=== PATIENT | female | born 1975 | race Two or more races ===

== ENCOUNTER 2024-04-22 08:38 | Outpatient (AMB) | payer MEDICAID, SELFPAY ==
[2024-04-22 09:10] VITALS: BP 122/72; PULSE 88; O2SAT 100; BMI 18.2
--- NOTE | 2024-04-22 09:10 | A.OFFVIS_ITS ---
Vital Signs 04/22/24 09:10 Height 5 ft 2 in Weight 99 lb 10.383 oz BMI 18.2 BP 122/72 Blood Pressure Location Lt brachial Position Sitting Pulse 88 Pulse Source Pulse Oximeter Pulse Oximetry (%) 100 Oxygen Delivery Method Room Air Intake Visit Reasons: RA/MR RECIEVED /CM APT Intake Note: Patient presents today for follow upon RA and lupus. She swas last seen in the [facility] on 04/02/[address] Bethea. She is complaining of arthritis in right hand,, and right foot, and burning pain in her feet. Trouble getting up and walking, getting dressed sometimes. Allergies nifedipine Allergy (Mild, Verified 04/22/24 08:26) intolerance HPI HPI RA/MR RECIEVED /CM APT: Details: SHe has pain in joints exacerbated with cold weather. She has not started leflunomide. She has been taking prednisone on 2 occasions that she had at home to help relieve joint pain. She denies any side effects from prednisone use. In the past when she was on prednisone 20 mg daily, she had headaches, which eventually subsided. Dermatology prescribed topical steroid for her rash with benefit. She has daily headaches with nausea. Nifedipine exacerbated her headaches. Review of Systems Const All systems reviewed & are unremarkable except as noted in HPI and below Physical Exam Vital Signs: Last Vital Signs Pulse 88 04/22/24 09:10 BP 122/72 04/22/24 09:10 Pulse Ox 100 04/22/24 09:10 Oxygen Delivery Method Room Air 04/22/24 09:10 BMI result Body Mass Index 18.2 Const Other: General: Comfortable CVS: RRR Respiratory: clear to auscultation bilaterally. Good respiratory effort Skin: No lesions seen MSK: Tender to palpate bilateral PIP knees. She has synovitis in multiple PIP and knees. No MCP tenderness. Rest of the joints are nontender without synovitis in upper extremities. She has bilateral MTP tenderness. Good range of motion of all her joints. Assessment & Plan Assessment & Plan (1) Systemic lupus erythematosus: Comment: History of Rhupus (RA/SLE) with rheumatoid factor 39, DICK 1: 1280, Lara and APPLICATIONS CONSULTANT antibody presenting with inflammatory arthritis, rashes and Raynaud's syndrome. She was started on hydroxychloroquine from 11/19/2021 to 02/19/2022, which was discontinued due to development of rash. Methotrexate was started 05/21/2022 to 05/21/2023 but caused headaches and discomfort. Benlysta increased agitation, anxiety and caused suicidal ideation. Uncontrolled inflammatory arthritis. She is currently not on a DMARD. She was prescribed leflunomide by Dr. Bethea in April but did not start it. She is willing to start it next Friday. Code(s): M32.9 - Systemic lupus erythematosus, unspecified Category: Medical Qualifiers: Systemic lupus erythematosus organ involvement: other Systemic lupus erythematosus type: unspecified Qualified Code(s): M32.19 - Other organ or system involvement in systemic lupus erythematosus Plan: Labs for drug monitoring ordered today. She will start leflunomide 10 mg daily on Friday She will have labs in a month for drug monitoring on high-risk medication Return to clinic in 3 months (2) Rheumatoid arthritis: Comment: See above Code(s): M06.9 - Rheumatoid arthritis, unspecified Category: Medical Plan: See above (3) Other petroleum terminal plant operator (current) drug therapy: Code(s): Z79.899 - Other petroleum terminal plant operator (current) drug therapy Category: Medical Plan: See above (4) Raynauds disease: Comment: Uncontrolled. Amlodipine and nifedipine caused headaches. She has had many different side effects on different drugs. I will start treatment for inflammatory arthritis this visit. If Raynaud's syndrome becomes more active, I will need to consider sildenafil. Code(s): I73.00 - Raynaud's syndrome without gangrene Category: Medical Plan: Monitor clinically Discussed conservative management with wearing gloves in the cold We will consider sildenafil next visit or sooner if Raynaud's becomes more active Return to clinic in 3 months or sooner if needed Orders: Orders Alanine Aminotransferase 1 Month M06.9 - Rheumatoid arthritis, unspecified, M32.9 - Systemic lupus erythematosus, unspecified, Z79.899 - Other fdc (current) drug therapy C Reactive Protein 1 Month Z79.899 - Other fdc (current) drug therapy Complete Blood Count Auto Diff 1 Month Z79.899 - Other fdc (current) drug therapy T Spot TB Today Z79.899 - Other petroleum terminal plant operator (current) drug therapy Complement C3 1 Month M32.9 - Systemic lupus erythematosus, unspecified Aspartate Amino Transferase 1 Month Z79.899 - Other petroleum terminal plant operator (current) drug therapy Creatinine 1 Month Z79.899 - Other fdc (current) drug therapy Erythrocyte Sedimentation Rate 1 Month Z79.899 - Other petroleum terminal plant operator (current) drug therapy Hepatitis B,C Profile Today Z79.899 - Other petroleum terminal plant operator (current) drug therapy Complement C4 1 Month M32.9 - Systemic lupus erythematosus, unspecified Anti DNA DS Antibody 1 Month M32.9 - Systemic lupus erythematosus, unspecified Protein Creatinine Ratio, Ur 1 Month M32.9 - Systemic lupus erythematosus, unspecified UA w Microscopic 1 Month M32.9 - Systemic lupus erythematosus, unspecified Coding Level of Care Code Est Pt Level 4 (93296) Complex EM visit Add On G2211 Diagnoses Systemic lupus erythematosus with other organ involvement, unspecified SLE type M32.19 Systemic lupus erythematosus organ involvement: other Systemic lupus erythematosus type: unspecified Rheumatoid arthritis M06.9 Other petroleum terminal plant operator (current) drug therapy Z79.899 Raynauds disease I73.00
== END 2024-04-22 09:54 | disposition home or self-care (01) ==
PROVIDERS: PCP Physician Assistant; Visit Provider Internal Medicine Rheumatology
DX: M32.19 Other organ or system involvement in systemic lupus erythematosus (principal); M06.9 Rheumatoid arthritis, unspecified; Z79.899 Other long term (current) drug therapy; I73.00 Raynaud's syndrome without gangrene
CPT/HCPCS: 99214

== ENCOUNTER → 2024-04-22 08:38 | Outpatient (BNVA) | payer MEDICAID, SELFPAY | PROVIDERS: PCP Physician Assistant; Visit Provider Internal Medicine Rheumatology | DX: M32.19 Other organ or system involvement in systemic lupus erythematosus (principal); M06.9 Rheumatoid arthritis, unspecified; I73.00 Raynaud's syndrome without gangrene; Z79.899 Other long term (current) drug therapy | CPT/HCPCS: 99212 ==

== ENCOUNTER 2024-04-26 08:20 | Outpatient (REF) | payer MEDICAID, SELFPAY | END 2024-04-26 08:21 | disposition home or self-care (01) | LOC: HO.LAB 08:20 | PROVIDERS: PCP Physician Assistant; Visit Provider Internal Medicine Rheumatology | DX: Z13.89 Encounter for screening for other disorder (principal) | CPT/HCPCS: 36415; 86481; 86704; 86706; 86803; 87340 ==

== ENCOUNTER 2024-04-26 13:38 | Outpatient (REF) | payer MEDICAID, SELFPAY ==
[2024-04-26 10:28] LABS: HBS Num1 > 1000.00 mIU/mL (0-7.99); HBc Num1 0.12 S/CO (0.00-0.79); Hepatitis B Core Antibody Nonreactive (Nonreactive); Hepatitis B Surface Antigen Negative (Negative); ~Hepatitis B Surface Antibody REACTIVE (Nonreactive); ~Hepatitis C Antibody Nonreactive (Nonreactive)
[2024-04-30 13:20] LABS: TS Negative Control PASSED; TS Panel A 0; TS Panel B 0
[2024-04-30 13:23] LABS: TSpotTB NEGATIVE
[2024-04-30 13:24] LABS: TS Positive Control PASSED
== END 2024-04-26 13:39 | disposition home or self-care (01) ==
LOC: HO.LNP 13:38
PROVIDERS: Visit Provider Internal Medicine Rheumatology
DX: M32.9 Systemic lupus erythematosus, unspecified (principal); M06.9 Rheumatoid arthritis, unspecified; Z79.899 Other long term (current) drug therapy
CPT/HCPCS: 36415; 86481; 86704; 86706; 86803; 87340

== ENCOUNTER 2024-07-27 10:11 | Outpatient (AMB) | payer MEDICAID, SELFPAY ==
--- NOTE | 2024-07-27 10:18 | A.OFFVIS_ITS ---
Vital Signs 07/27/24 10:19 Height 5 ft 2 in Weight 98 lb 1.691 oz BMI 17.9 BP 100/70 Blood Pressure Location Lt brachial Position Sitting Pulse 58 Pulse Source Pulse Oximeter Pulse Oximetry (%) 98 Oxygen Delivery Method Room Air Intake Visit Reasons: Follow Up 3mo Intake Note: Patient presents today for follow upon RA and lupus. Pt states that she has torn ligaments in her right leg for the past week pt states that she almost fell in the bathtub and caught herself. Mobile Home Servicer Required: No Accompanied by: Self / Same As Patient Allergies nifedipine Allergy (Mild, Verified 07/27/24 10:18) intolerance HPI HPI Follow Up 3mo: Details: A week ago she almost fell in the bathroom and hung on the curtain. She has a sensation of tendon pull from right hip radiation to knee. Constant. Hard to sle ep. Bending worsens the pain. Tylenol and voltaren gel. On leflunomide 10mg qd. She has been having hair loss. She feels depressed with the hair loss. She has pain in her right shoulder extending to her upper arm when she lays down on it to rest. She requires assistance to help her get up due to uncontrolled pain, which eventually decreases in intensity. R 3-4th finger is active with raynaud's in the cold. Review of Systems Const All systems reviewed & are unremarkable except as noted in HPI and below Physical Exam Vital Signs: Last Vital Signs Pulse 58 07/27/24 10:19 BP 100/70 07/27/24 10:19 Pulse Ox 98 07/27/24 10:19 Oxygen Delivery Method Room Air 07/27/24 10:19 BMI result Body Mass Index 17.9 Const Other: General: Comfortable CVS: RRR Respiratory: clear to auscultation bilaterally. Good respiratory effort Skin: No lesions seen MSK: Tender to palpate bilateral PIPs. She has synovitis in right 2nd and 3rd PIP. No MCP tenderness. Right shoulder tenderness anteriorly. She has pain with internal rotation. Full range of motion of bilateral shoulders. She has bilateral MTP tenderness. Tender to palpate left groin region with pain with hip external rotation, flexion and extension. No trochanteric bursa tenderness was found. Assessment & Plan Assessment & Plan (1) Systemic lupus erythematosus: Comment: Inflammatory arthritis is better controlled on leflunomide but it is causing side effect of hair loss contributing to depression. We discussed next steps in management with conventional DMARDs therapy. After lab results are back, we will consider sulfasalazine. History of Rhupus (RA/SLE) with rheumatoid factor 39, DICK 1: 1280, Lara and [employer]AP[employer] FORMER antibody presenting with inflammatory arthritis, rashes and Raynaud's syndrome. She was started on hydroxychloroquine from 10/2021 to 01/2022, which was discontinued due to development of rash. Methotrexate was started 05/21/2022 to 05/21/2023 but caused headaches and discomfort. Benlysta increased agitation, anxiety and caused suicidal ideation. Leflunomide 10 mg q.d. 04/2024-07/27/2024 DC due to hair loss. Code(s): M32.9 - Systemic lupus erythematosus, unspecified Category: Medical Qualifiers: Systemic lupus erythematosus type: unspecified Systemic lupus erythematosus organ involvement: other Qualified Code(s): M32.19 - Other organ or system involvement in systemic lupus erythematosus Plan: Discontinue leflunomide Labs for disease and drug monitoring on high-risk medication ordered. I will consider prescribing sulfasalazine 500 mg twice a day. Return to clinic in 3 months (2) Hip pain, right: Comment: After slipping in the bathroom likely contributing to muscle/ligament strain. I will obtain x-ray of right hip to evaluate for osteoarthritis, which may also contribute to pain. We discussed conservative management. She is avoiding ibuprofen as it has caused GI side effect in the past. Code(s): M25.551 - Pain in right hip Category: Medical Plan: After lab results are back, I will send prescription for meloxicam 15 mg daily PT ordered (3) Shoulder pain, right: Comment: Suspect mild rotator cuff tendinopathy. We discussed conservative management. I will be checking x-ray to evaluate for joint pathology contributing to pain. Code(s): M25.511 - Pain in right shoulder Category: Medical Qualifiers: Chronicity: chronic Qualified Code(s): M25.511 - Pain in right shoul amarjit; G89.29 - Other chronic pain Plan: X-ray right shoulder ordered PT ordered for shoulder strengthening After lab results are back, I will send prescription for NSAID meloxicam 15 mg daily Return to clinic in 3 months (4) Rheumatoid arthritis: Comment: See above Code(s): M06.9 - Rheumatoid arthritis, unspecified Category: Medical Plan: See above (5) Other residential (current) drug therapy: Code(s): Z79.899 - Other ocean transportation intermediary (current) drug therapy Category: Medical Plan: See above (6) Raynauds disease: Comment: Better controlled with compliance with conservative management (gloves, warming with warm water and using hot packs). Amlodipine and nifedipine caused headaches. Code(s): I73.00 - Raynaud's syndrome without gangrene Category: Medical Plan: Continue conservative management I will consider sildenafil if Raynaud's becomes more active Return to clinic in 3 months or sooner if needed Orders: Orders XR hip RT min 2V Today M25.551 - Pain in right hip PT Evaluation and Treatment Today M25.511 - Pain in right shoulder, M25.551 - Pain in right hip, M75.81 - Other shoulder lesions, right shoulder, S76.011A - Strain of muscle, fascia and tendon of right hip, initial encounter XR shoulder RT min 2V Today M25.511 - Pain in right shoulder Coding Level of Care Code Est Pt Level 4 (02485) Complex EM visit Add On G2211 Diagnoses Systemic lupus erythematosus with other organ involvement, unspecified SLE type M32.19 Systemic lupus erythematosus type: unspecified Systemic lupus erythematosus organ involvement: other Hip pain, right M25.551 Chronic right shoulder pain M25.511; G89.29 Chronicity: chronic Rheumatoid arthritis M06.9 Other ocean transportation intermediary (current) drug therapy Z79.899 Raynauds disease I73.00
[2024-07-27 10:19] VITALS: BP 100/70; PULSE 58; O2SAT 98; BMI 17.9
--- OUTSIDE RECORDS SUMMARY | 2024-07-27 11:55 | XMS_ITS | Clinical Summary ---
Author Organization [facility] Address [address] [place] [address] Care Team Providers Care Electrician Underground Name Role Phone Jeni Ramires PA-C Primary Care Provider [phone] Source Comments PLEASE NOTE, if this patient is a minor, it may be UNLAWFUL to discuss sensitive information that is contained in these records (such as FAMILY PLANNING, MENTAL HEALTH or SUBSTANCE ABUSE) with the minor patient's parent or other person without the patient's specific authorization.[facility] Allergies Active Allergy Reactions Criticality Noted Date Comments Doxycycline Nausea and Vomiting 11/18/2022 Other reaction(s): swollen eye Medications betamethasone dipropionate (DIPROLENE) 0.05 % ointment APPLY TO ARMS TWICE A DAY NEEDED FOR FOR FLARES 06/07/19 23 Active triamcinolone (KENALOG) 0.1 % lotion APPLY TO SCALP TWICE A DAY NEEDED FOR FLARES 06/07/19 23 Active arm braceIndications :Wrist pain, acute, right Wear right wrist brace, size small at night and during day, take off when bathing and toileting. Ref [id number], lot [id number] 1 Each 07/18/19 23 Active folic acid (FOLVITE) 1 mg tablet Take 1,000 mcg by mouth once daily 09/30/19 23 Active methotrexate 2.5 mg tablet TAKE 5 TABLETS BY MOUTH ONCE A WEEK 10/21/19 23 Active hydrocortisone (ANUSOL-HC) 2.5 % topical creamIndications :Hemorrhoids, unspecified hemorrhoid type Place rectally 2 (two) times daily 30 g 1 11/19/19 23 Active witch Hayder (TUCKS) 50 %Indications:Hem orrhoids, unspecified hemorrhoid type Topical: Apply to anorectal area as needed up to 6 times daily or after each bowel movement 48 Each 1 11/19/19 23 Active MISCELLANEOUS MEDICAL SUPPLY MISCIndications: Weight loss by miscellaneous route 2 (two) times daily Ensure (vanilla & strawberry) to take twice a day. Life time need it. BMI 17.93. 60 Each 1 11/21/19 24 Active SUMAtriptan succinate (IMITREX) 50 mg tabletIndication s:Acute migraine TAKE 1-2 TABLETS A SINGLE DOSE. IF SYMPTOMS PERSIST OR RETURN, MAY REPEAT DOSE (USUALLY SAME FIRST DOSE) AFTER MORE THAN 2 HOURS. MAXIMUM DOSE: 100 MG/DOSE 200 MG PER 24 HOURS. 30 Tablet 11/28/19 24 Active melatonin 3 mg tabletIndication s:Insomnia, unspecified type TAKE 1 TABLET BY MOUTH NIGHTLY AT BEDTIME NEEDED FOR SLEEP 90 Tablet 12/29/19 24 Active acetaminophen (TYLENOL) 500 mg tabletIndication s:Pelvic pain TAKE 1 TABLET BY MOUTH EVERY 6 HOURS NEEDED FOR PAIN 90 Tablet 12/29/19 24 Active docusate sodium (COLACE) 100 mg capsuleIndicatio ns:Hemorrhoids, unspecified hemorrhoid type TAKE 1 CAPSULE BY MOUTH 2 (TWO) TIMES DAILY NEEDED FOR CONSTIPATION FOR IRON-INDUCED CONSTIPATION 180 Capsule 12/29/19 24 Active Active Problems Problem Noted Date Diagnosed Date Systemic lupus erythematosus ([facility]) 4 Overview (11/21/2023): Tie Bucker note: Positive MUSIC PROFESSIONALS antibody associated with MCTD positiver DICK and Lara anitbody associated with systemic lupus erythromatosus positive rheumatoid factor antibody associated with RA Family history of pancreatic cancer 11/21/2023 Family history of breast cancer 11/21/2023 Family hx of colon cancer 11/21/2023 Acute migraine 11/21/2023 Weight loss 11/21/2023 Screening mammogram, encounter for 11/21/2023 Iron deficiency 11/18/2022 Deviated nasal septum 11/30/2021 Hypertrophy of nasal turbinates 11/30/2021 Raynaud's disease without gangrene 10/05/2021 Overview (10/05/2021): Rheumatology started Amlodipine 2.5mg once daily Chronic polyarthritis 10/05/2021 RA (rheumatoid arthritis) ([facility]) Overview (08/29/2022): Seeing arthritis Rx center. Last seen 08/26/22. On methotrexate 12.5mg once weekly. + folic acid. F/u in 6 months, lab monitoring in 1 month Immunizations Name Administration Dates Next Due Flu, Preservative Free 05/21/2023,07/26/2021 Hep B,adult,adjuvanted (HEPLISAV) 08/06/2023, INFLUENZA, SEASONAL, INJECTABLE, PRESERVATIVE FR EE 01/29/2016,01/29/2016 Influenza, Whole 05/05/2012 PFIZER COVID VACCINE, PURPLE CAP, 12+ 06/21/2021 ,06/21/2021 PNEUMOCOCCAL CONJUGATE PCV 13 11/18/2022 TDAP 07/26/2021 Td (adult) unspecified 05/05/2012 Td (adult), 5 Lf tetanus toxoid, preservative fr ee 08/20/2013 ZOSTER VACCINE, RECOMBINANT (SHINGRIX) ,11/18/2022 Family History Medical History Relation Name Comments Cancer Daughter 3 Cancer Father Cancer Mother Diabetes Mother High Cholesterol Mother Hypertension Mother Relation Name Status Comments Daughter 3 Alive Elder sister wi th breast cancer and 2nd sister with skin cancer Father Other Prostate cancer Mother Other Pancreatic canc er Social History Tobacco Use Types Packs/Day Years Used Date Smoking Tobacco: Never Smokeless Tobacco: Never Alcohol Use Standard Drinks/Week Comments Not Currently 0 (1 standard drink = 0.6 oz pur e alcohol) Social Connections Answer Date Recorded Connectedness 0 11/18/2022 Financial Resource Strain Answer Date R ecorded Financial Resource Strain 0 2022 Stress Answer Date Recorded Stress 0 11/18/2022 Physical Activity Answer Date Recorded Physical Activity 0 07/26/2021 Food Insecurity Answer Date Recorded Food 0 11/18/2022 Transportation Needs Answer Date Record ed Transportation 0 11/18/2022 Housing Stability Answer Date Recorded Housing 0 11/18/2022 Safety and Environment Answer Date Ruddy rded Safety 0 11/18/2022 Utilities Answer Date Recorded Utilities 0 11/18/2022 Employment Answer Date Recorded Stress 0 08/20/2021 Comments No Sex and Gender Information Value Date Recorded Sex Assigned at Female 07/26/2021 9:57 AM PST Legal Sex Female 6:12 AM PST Gender Identity Female 07/26/2021 9:57 AM PST Sexual Orientation Straight 07/26/2021 9: 57 AM PST Last Filed Vital Signs Vital Sign Reading Time Taken Comments Blood Pressure 106/70 11/21/2023 10:02 AM EDT Pulse 84 08/06/2023 11:42 AM EST Temperature 37.3 ??C (99.1 ??F) 11/21/2023 10:02 AM E DT Respiratory Rate 16 08/06/2023 11:42 AM EST Oxygen Saturation 100% 08/06/2023 11:42 AM EST Inhaled Oxygen Concentration - - Weight 43.2 kg (95 lb 3.2 oz) 11/21/2023 10:02 A M EDT Height 158 cm (5' 2.21 ) 07/18/2022 1:11 PM EST Body Mass Index 17.29 07/18/2022 1:11 PM EST Plan of Treatment Health Maintenance Due Date Last Done Comments HPV Screening 1974 Pap + HPV 1974 Cervical Cancer Screening 08/03/1995 Pap Smear 08/03/1995 CT Colonography 08/03/2019 FIT/gFOBT 08/03/2019 Fecal DNA 08/03/2019 Flexible Sigmoidoscopy 08/03/2019 [id number] (3 - Pfizer ris k series) 07/19/2021 06/21/2021, 06/21/2021, 02/02/2021 Imm-Pneumococcal (2 of 2 - PPSV23) 01/13/2023 11/18/2022 Annual Preventive Care Visit 11/19/2023 11/18/2022, 07/26/2021 Relationship Safety Screening/Counseling 11/19/2023 11/18/2022, 07/26/2021 Imm-Influenza (#1) 2024 05/21/2023, 0 07/26/2021, 01/29/2016, Additional history exists Alcohol and Drug Screen 06/02/2024 08/06/19, 11/18/2022, 09/27/2021, Additional history exists Depression Monitoring 10/18/2024 07/21/2024 , 05/21/2023, 11/18/2022, Additional history exists Hypertension Screening (#1) 11/20/2024 Tobacco Screening 12/02/2024 12/03/2023, , 07/26/2021 Breast Cancer Screening (Mammogram) 12/15/2024 12/16/2023, 11/26/2022, 08/15/2021 Diabetes Screening 08/06/2026 08/07/2023, 0 08/07/2023, 08/10/2021, Additional history exists Lipid Screening 08/10/2026 08/10/2021 Imm-DTaP/Tdap/Td (2 - Td or Tdap) 07/26/2031 07/26/2021, 08/20/2013, 05/05/2012 Colonoscopy 02/25/2034 02/26/2024 Colorectal Cancer Screening 02/25/2034 HIV Screening Completed 08/10/2021 Hepatitis C Screening Completed 08/10/2021 Imm-Zoster, Recombinant Completed 05/21/2023, 11/18 Imm-Hepatitis B Completed 08/06/2023, 11/18/2022 Cervical Ablation/Cold-Knife Conization Discontinued Cervical Cryotherapy Discontinued Colposcopy Discontinued Endometrial Biopsy Discontinued Excision/Leep Discontinued HPV Genotyping Discontinued Vaginal Pap Discontinued Vulvoscopy Discontinued Procedures Procedure Name Priority Date/Time Associated Diagnosis Comments LAB SCANNED DOCUMENT 04/26/2024 3:00 AM EST LAB SCANNED DOCUMENT 04/26/2024 3:00 AM EST LAB SCANNED DOCUMENT 04/26/2024 3:00 AM EST LAB SCANNED DOCUMENT 04/26/2024 3:00 AM EST REFERRAL FOR COLONOSCOPY Routine 02/26/2024 3:00 AM EDT Weight loss Family hx of colon cancer REFERRAL FOR MAMMOGRAM Routine 12/16/2023 3:00 AM EDT Family history of breast cancer Screening mammogram, encounter for HGA1C W/EAG Routine 08/07/2023 9:29 AM EST Frequent urination HIV 1/2 AG & AB W/RFLX (4TH GEN) Routine 08/10/2021 9:22 AM EST Screening for viral disease HEPATITIS C AB W/RFLX HCV RNA, QT, RT PCR Routine 08/10/2021 9:22 AM EST Screening for viral disease LIPIDS W RFLX TO DIRECT LDL Routine 08/10/2021 9:22 AM EST Screening for cholesterol level Underweight from Last 3 Months or Most Recently Relevant to Health Maintenance Results * LAB SCANNED DOCUMENT (04/26/2024 3:00 AM EST) Only the most recent of4 resultswithin the time period is included. 04/26/2024 3:00 AM EST Jeni Ramires PA-C SCAN LAB Final Result * REFERRAL FOR COLONOSCOPY (02/26/2024 3:00 AM EDT) 02/26/2024 3:00 AM EDT Jeni Ramires PA-C REFERRAL Edited Resul t - Final * REFERRAL FOR MAMMOGRAM (12/16/2023 3:00 AM EDT) 12/16/2023 3:00 AM EDT Jeni Ramires PA-C IMG RFL MAMMO Edited Resul t - Final * HGA1C W/EAG (08/07/2023 9:29 AM EST) HEMOGLOBIN A1C 5.3 <5.7 % of total Hgb [email or web address] [facility] Comment: For the purpose of screening for the presence of diabetes: <5.7% ? Consistent with the absence of diabetes 5.7-6.4% ?Consistent with increased risk for diabetes ?(prediabetes) > or =6.5% ??Consistent with diabetes This assay result is consistent with a decreased risk of diabetes. Currently, no consensus exists regarding use of hemoglobin A1c for diagnosis of diabetes in children. According to [place] Diabetes Association (ADA) guidelines, hemoglobin A1c <7.0% represents optimal control in non- diabetic patients. Different metrics may apply to specific patient populations. Standards of Medical Care in Diabetes(ADA). ?? EAG (MG/DL) 105 mg/dL [facility] EAG (MMOL/L) 5.8 mmol/L [facility] Blood Blood / Unknown 08/07/2023 9 :29 AM EST 08/07/2023 9:30 AM EST Narrative [employer] [facility] - 08/08/2023 7:22 AM EST FASTING:NO Jeni Ramires PA-C LAB - BLOOD DRAW Final Resul t Performing Organization Address [facility]/ZIP Co de Phone Number [employer] [place] [employer] [address] [place] [address], [employer] [address] [address] * HEPATITIS C AB W/RFLX HCV RNA, QT, RT PCR (08/10/2021 9:22 AM EST) HEPATITIS C ANTIBODY NON-REACT ALEX NON-REACT ALEX [employer] [facility] SIGNAL TO CUT-OFF 0.02 <1.00 [employer] [facility] Comment: HCV antibody was non-reactive. There is no laboratory evidence of HCV infection. In most cases, no further action is required. However, if recent HCV exposure is suspected, a test for HCV RNA (test code 85121) is suggested. For additional information please refer to http://education.XRONet/faq/NRW72b7 (This link is being provided for informational/ educational purposes only.) Blood Blood / Unknown 08/10/2021 9 :22 AM EST 08/10/2021 9:22 AM EST Paula SÁNCHEZP-C LAB - BLOOD DRAW Final Resul t Performing Organization Address City/[facility]/ZIP Co de Phone Number [employer] [facility] [address] [address], [employer] [address] [address] * HIV 1/2 AG & AB W/RFLX (4TH GEN) (08/10/2021 9:22 AM EST) Pathologist [facility] HIV AG/AB, 4TH GEN NON-REAC TIVE NON-REAC TIVE [facility] Comment: HIV-1 antigen and HIV-1/HIV-2 antibodies were not detected. There is no laboratory evidence of HIV infection. PLEASE NOTE: This information has been disclosed to you from records whose confidentiality may be protected by state law. ??If your state requires such protection, then the state law prohibits you from making any further disclosure of the information without the specific written consent of the person to whom it pertains, or as otherwise permitted by law. A general authorization for the release of medical or other information is NOT sufficient for this purpose. ?? For additional information please refer to http://education.XRONet/faq/JTS466 (This link is being provided for informational/ educational purposes only.) The performance of this assay has not been clinically validated in patients less than 2 years old. Blood Blood / Unknown 08/10/2021 9 :22 AM EST 08/10/2021 9:22 AM EST Paula Ping CRYSTALIZER-C LAB - BLOOD DRAW Final Resul t [employer] [address] [address], [facility] [address] [address] * (ABNORMAL) LIPIDS W RFLX TO DIRECT LDL (08/10/2021 9:22 AM EST) Pathologist [facility] CHOLESTEROL, TOTAL 179 <200 mg/dL [facility] HDL CHOLESTEROL 43(L) > OR = 50 mg/dL [facility] TRIGLYCERIDES 211(H) <150 mg/dL [facility] Comment: If a non-fasting specimen was collected, consider repeat triglyceride testing on a fasting specimen if clinically indicated. Lina et al. J. of Clin. Lipidol. 2015;9:129-169. LDL-CHOLESTEROL 103(H) 99 mg/dL (calc) [facility] Comment: Reference range: <100 Desirable range <100 mg/dL for primary prevention; ?? <70 mg/dL for patients with CHD or diabetic patients with > or = 2 CHD risk factors. LDL-C is now calculated using the Venus calculation, which is a validated novel method providing better accuracy than the Friedewald equation in the estimation of LDL-C. Conner MAXWELL et al. SERAFIN. 2013;310(19): 9836-0473 (http://education.[employer]/faq/AYZ490) CHOL/HDLC RATIO 4.2 <5.0 (calc) [facility] NON-HDL CHOLESTEROL 136(H) <130 mg/dL (calc) [facility] Comment: For patients with diabetes plus 1 major ASCVD risk factor, treating to a non-HDL-C goal of <100 mg/dL (LDL-C of <70 mg/dL) is considered a therapeutic option. Blood Blood / Unknown 08/10/2021 9 :22 AM EST 08/10/2021 9:22 AM EST Paula Feng CRYSTALIZER-C LAB - BLOOD DRAW Final Resul t [facility] [address] [address], [facility] [address] [address] from Last 3 Months or Most Recently Relevant to Health Maintenance Insurance [employer] Care Teams Electrician Underground Relationship Specialty Start Date End Date Jeni Ramires PA-C [address] [place] [address] PCP - General Internal Medicine 04/03/23
== END 2024-07-27 11:03 | disposition home or self-care (01) ==
PROVIDERS: PCP Physician Assistant; Visit Provider Internal Medicine Rheumatology
DX: M32.19 Other organ or system involvement in systemic lupus erythematosus (principal); M25.551 Pain in right hip; M25.511 Pain in right shoulder; G89.29 Other chronic pain; M06.9 Rheumatoid arthritis, unspecified; Z79.899 Other long term (current) drug therapy; I73.00 Raynaud's syndrome without gangrene
CPT/HCPCS: 99214

== ENCOUNTER → 2024-07-27 10:11 | Outpatient (BNVA) | payer MEDICAID, SELFPAY | PROVIDERS: PCP Physician Assistant; Visit Provider Internal Medicine Rheumatology | DX: M32.19 Other organ or system involvement in systemic lupus erythematosus (principal); M25.551 Pain in right hip; G89.29 Other chronic pain; M06.9 Rheumatoid arthritis, unspecified; I73.00 Raynaud's syndrome without gangrene; M75.81 Other shoulder lesions, right shoulder; S76.011A Strain of muscle, fascia and tendon of right hip, initial encounter; X58.XXXA Exposure to other specified factors, initial encounter; Y93.9 Activity, unspecified; Y92.9 Unspecified place or not applicable; Y99.9 Unspecified external cause status; Z79.899 Other long term (current) drug therapy | CPT/HCPCS: 99212 ==

== ENCOUNTER 2024-07-30 06:50 | Outpatient (REF) | payer MEDICAID, SELFPAY ==
--- NOTE | ~2024-07-30 | XR_ITS ---
CLINICAL HISTORY: M25.511 - Pain in right shoulder 4 view right shoulder Comparison: None Findings: Bones intact. No dislocations. Mild degenerative changes of the acromioclavicular and glenohumeral joints. No erosions. No radiopaque foreign body. IMPRESSION: 1. No acute findings. 2. Mild degenerative changes. This document has been electronically signed by: Mariusz Freitas MD on 07/30/2024 11:27:12
--- NOTE | ~2024-07-30 | XR_ITS ---
CLINICAL HISTORY: M25.551 - Pain in right hip 2 view, pelvis and right hip Comparison: None Findings: The bones are intact. Mild degenerative change of the femoral-acetabular joint The soft tissues are unremarkable. IMPRESSION: No acute findings. Mild degenerative changes of the right hip joint This document has been electronically signed by: Mariusz Freitas MD on 07/30/2024 11:26:40
--- OUTSIDE RECORDS SUMMARY | 2024-07-30 06:54 | XMS_ITS | Clinical Summary ---
Author Organization [facility] Address [address] [place] [address] Care Team Providers Care Information Systems Consultant Name Role Phone Jeni Ramires PA-C Primary Care Provider Source Comments PLEASE NOTE, if this patient [...] take off when bathing and toileting. Ref [id number], lot [id number] 1 Each 07/18/19 23 Active folic acid [...] Noted Date Diagnosed Date Systemic lupus erythematosus ([facility]) 4 Overview (11/21/2023): Security System Analyst note: Positive FIELD EXAMINER antibody associated with MCTD positiver DICK and [...] daily Chronic polyarthritis 10/05/2021 RA (rheumatoid arthritis) ([facility]) Overview (08/29/2022): Seeing arthritis Rx center. Last [...] 08/03/2019 Fecal DNA 08/03/2019 Flexible Sigmoidoscopy 08/03/2019 [id number] (3 - Pfizer ris k series) 07/19/2021 [...] Procedure Name Priority Date/Time Associated Diagnosis Comments REFERRAL FOR COLONOSCOPY Routine 02/26/2024 3:00 AM [...] Recently Relevant to Health Maintenance Results * REFERRAL FOR COLONOSCOPY (02/26/2024 3:00 AM EDT) 02/26/2024 3:00 AM EDT Jeni Ramires PA-C REFERRAL Edited Resul t - Final * REFERRAL FOR MAMMOGRAM (12/16/2023 3:00 AM EDT) 12/16/2023 3:00 AM EDT Jeni Ramires PA-C IMG RFL MAMMO Edited Resul t - Final * HGA1C W/EAG (08/07/2023 9:29 AM EST) HEMOGLOBIN A1C 5.3 <5.7 % of total Hgb [facility] Comment: For the purpose of screening for the presence of diabetes: <5.7% ? Consistent with the absence of diabetes 5.7-6.4% ?Consistent with increased risk for diabetes ?(prediabetes) > or =6.5% ??Consistent with diabetes This assay result is consistent with a decreased risk of diabetes. Currently, no consensus exists regarding use of hemoglobin A1c for diagnosis of diabetes in children. According to [place] Diabetes Association (ADA) guidelines, hemoglobin A1c <7.0% represents optimal control in non- diabetic patients. Different metrics may apply to specific patient populations. Standards of Medical Care in Diabetes(ADA). ?? EAG (MG/DL) 105 mg/dL [facility] [employer] EAG (MMOL/L) 5.8 mmol/L [facility] Blood Blood / Unknown 08/07/2023 9 :29 AM EST 08/07/2023 9:30 AM EST Narrative [facility] [employer] - 08/08/2023 7:22 AM EST FASTING:NO Jeni Ramires PA-C LAB - BLOOD DRAW Final Resul t [facility] [address] [address], [employer] [facility] [address] [place] [address] * HEPATITIS C AB W/RFLX HCV RNA, QT, RT PCR (08/10/2021 9:22 AM EST) HEPATITIS C ANTIBODY NON-REACT ALEX NON-REACT ALEX [employer] [facility] SIGNAL TO CUT-OFF 0.02 <1.00 [employer] [facility] Comment: HCV antibody was non-reactive. There is no laboratory evidence of HCV infection. In most cases, no further action is required. However, if recent HCV exposure is suspected, a test for HCV RNA (test code 06158) is suggested. For additional information please refer to http://education.Trovebox/faq/JXV83u9 (This link is being provided for informational/ educational purposes only.) Blood Blood / Unknown 08/10/2021 9 :22 AM EST 08/10/2021 9:22 AM EST Paula Ping TESTER VIBRATOR EQUIPMENT-C LAB - BLOOD DRAW Final Resul t [employer] [facility] [address] [address], [employer] [address] [address] * HIV 1/2 AG & AB W/RFLX (4TH GEN) (08/10/2021 9:22 AM EST) HIV AG/AB, 4TH GEN NON-REAC TIVE NON-REAC TIVE [employer] [facility] Comment: HIV-1 antigen and HIV-1/HIV-2 antibodies were [...] ?? For additional information please refer to http://Rupeetalk.[employer]/faq/XVV221 (This link is being provided for informational/ educational purposes only.) The performance of this assay has not been clinically validated in patients less than 2 years old. Blood Blood / Unknown 08/10/2021 9 :22 AM EST 08/10/2021 9:22 AM EST Paula Feng TESTER VIBRATOR EQUIPMENT-C LAB - BLOOD DRAW Final Resul t [employer] [address] [address], [facility] [address] [address] * (ABNORMAL) LIPIDS W RFLX TO DIRECT LDL (08/10/2021 9:22 AM EST) CHOLESTEROL, TOTAL 179 <200 mg/dL [facility] HDL CHOLESTEROL 43(L) > OR = 50 mg/dL [facility] TRIGLYCERIDES 211(H) <150 mg/dL [facility] Comment: If a non-fasting specimen was collected, consider repeat triglyceride testing on a fasting specimen if clinically indicated. Lina et al. J. of Clin. Lipidol. 2015;9:129-169. LDL-CHOLESTEROL 103(H) 99 mg/dL (calc) [facility] Comment: Reference range: <100 Desirable range <100 mg/dL for primary prevention; ?? <70 mg/dL for patients with CHD or diabetic patients with > or = 2 CHD risk factors. LDL-C is now calculated using the Conner-Chanell calculation, which is a validated novel method providing better accuracy than the Friedewald equation in the estimation of LDL-C. Conner SS et al. SERAFIN. 2013;310(19): 7373-0532 (http://education.[employer]/faq/PFW900) CHOL/HDLC RATIO 4.2 <5.0 (calc) [facility] NON-HDL CHOLESTEROL 136(H) <130 mg/dL (calc) [facility] Comment: For patients with diabetes plus 1 major ASCVD risk factor, treating to a non-HDL-C goal of <100 mg/dL (LDL-C of <70 mg/dL) is considered a therapeutic option. Blood Blood / Unknown 08/10/2021 9 :22 AM EST 08/10/2021 9:22 AM EST Paula Feng TESTER VIBRATOR EQUIPMENT-C LAB - BLOOD DRAW Final Resul t [employer] [address] [address], [employer] [facility] [address] [address] from Last 3 Months or Most Recently Relevant to Health Maintenance Insurance [id number] Care Teams Information Systems Consultant Relationship Specialty Start Date End Date Jeni Ramires PA-C [address] [place] [address] PCP - General Internal Medicine 04/03/23
== END 2024-07-30 06:51 | disposition home or self-care (01) ==
LOC: HO.XRAY 06:50
PROVIDERS: PCP Physician Assistant; Visit Provider Internal Medicine Rheumatology
DX: M25.511 Pain in right shoulder (principal); M25.561 Pain in right knee
CPT/HCPCS: 73030; 73502

== ENCOUNTER → 2024-07-30 06:56 | Outpatient (BNV) | payer MEDICAID, SELFPAY | PROVIDERS: PCP Physician Assistant; Visit Provider Radiology Vascular & Interventional Radiology | DX: M25.511 Pain in right shoulder (principal); M25.551 Pain in right hip | CPT/HCPCS: 73030; 73502 ==

== ENCOUNTER 2024-08-09 08:19 | Outpatient (REF) | payer MEDICAID, SELFPAY ==
--- OUTSIDE RECORDS SUMMARY | 2024-08-09 08:30 | XMS_ITS | Clinical Summary ---
Author Organization [facility] Address [address] [place] [address] Care Team Providers Care Stars Specialist Name Role Phone Jeni Ramires PA-C Primary [...] take off when bathing and toileting. Ref [id number], lot [id number] 1 Each 07/18/19 23 Active folic acid [...] Noted Date Diagnosed Date Systemic lupus erythematosus ([facility]) 4 Overview (11/21/2023): Graphite Pan Drier Tender note: Positive FEEDER ASSOCIATE antibody associated with MCTD positiver DICK and [...] daily Chronic polyarthritis 10/05/2021 RA (rheumatoid arthritis) ([facility]) Overview (08/29/2022): Seeing arthritis Rx center. Last [...] 08/03/2019 Fecal DNA 08/03/2019 Flexible Sigmoidoscopy 08/03/2019 [id number] (3 - Pfizer ris k series) 07/19/2021 [...] Procedure Name Priority Date/Time Associated Diagnosis Comments IMAGING SCANNED DOCUMENT 07/30/2024 3:00 AM EST IMAGING SCANNED DOCUMENT 07/30/2024 3:00 AM EST IMAGING SCANNED DOCUMENT 07/30/2024 3:00 AM EST IMAGING SCANNED DOCUMENT 07/30/2024 3:00 AM EST REFERRAL FOR COLONOSCOPY Routine [...] Recently Relevant to Health Maintenance Results * IMAGING SCANNED DOCUMENT (07/30/2024 3:00 AM EST) Only the most recent of4 resultswithin the time period is included. 07/30/2024 3:00 AM EST Jeni Ramires PA-C SCAN IMAGING Final Result * REFERRAL FOR COLONOSCOPY (02/26/2024 3:00 AM EDT) 02/26/2024 3:00 AM EDT Jeni Ramires PA-C REFERRAL Edited Resul t - Final * REFERRAL FOR MAMMOGRAM (12/16/2023 3:00 AM EDT) 12/16/2023 3:00 AM EDT Jeni Ramires PA-C IMG RFL MAMMO Edited Resul t - Final * HGA1C W/EAG (08/07/2023 9:29 AM EST) HEMOGLOBIN A1C 5.3 <5.7 % of total Hgb [facility] Comment: For the purpose of screening for the presence of diabetes: <5.7% ? Consistent with the absence of diabetes 5.7-6.4% ?Consistent with increased risk for diabetes ?(prediabetes) > or =6.5% ??Consistent with diabetes This assay result is consistent with a decreased risk of diabetes. Currently, no consensus exists regarding use of hemoglobin A1c for diagnosis of diabetes in children. According to [place] Diabetes Association (ADA) guidelines, hemoglobin A1c <7.0% represents optimal control in non- diabetic patients. Different metrics may apply to specific patient populations. Standards of Medical Care in Diabetes(ADA). ?? EAG (MG/DL) 105 mg/dL [facility] EAG (MMOL/L) 5.8 mmol/L [facility] Blood Blood / Unknown 08/07/2023 9 :29 AM EST 08/07/2023 9:30 AM EST Narrative [facility] - 08/08/2023 7:22 AM EST FASTING:NO Jeni Ramires PA-C LAB - BLOOD DRAW Final Resul t Performing Organization Address [facility]/ZIP Co de Phone Number [employer] [facility] [employer] [address] [place] [address], [employer] [address] [address] * HEPATITIS C AB W/RFLX HCV RNA, QT, RT PCR (08/10/2021 9:22 AM EST) HEPATITIS C ANTIBODY NON-REACT ALEX NON-REACT ALEX [facility] SIGNAL TO CUT-OFF 0.02 <1.00 [employer] Comment: HCV antibody was non-reactive. There is no laboratory evidence of HCV infection. In most cases, no further action is required. However, if recent HCV exposure is suspected, a test for HCV RNA (test code 00553) is suggested. For additional information please refer to http://education.1Ring/faq/BGL81u9 (This link is being provided for informational/ educational purposes only.) Blood Blood / Unknown 08/10/2021 9 :22 AM EST 08/10/2021 9:22 AM EST Paula SÁNCHEZP-C LAB - BLOOD DRAW Final Resul t Performing Organization Address City/[facility]/ZIP Co de Phone Number [facility] [address] [address], [employer] [address] [address] * HIV 1/2 AG & AB W/RFLX (4TH GEN) (08/10/2021 9:22 AM EST) Pathologist [facility] HIV AG/AB, 4TH GEN NON-REAC TIVE NON-REAC TIVE [facility] Comment: HIV-1 antigen and HIV-1/HIV-2 antibodies were [...] ?? For additional information please refer to http://education.1Ring/faq/MHM463 (This link is being provided for informational/ educational purposes only.) The performance of this assay has not been clinically validated in patients less than 2 years old. Blood Blood / Unknown 08/10/2021 9 :22 AM EST 08/10/2021 9:22 AM EST Paula Ping CHARGE ENTRY-C LAB - BLOOD DRAW Final Resul t [facility] [address] [address], [facility] [address] [address] * (ABNORMAL) LIPIDS W RFLX TO DIRECT LDL (08/10/2021 9:22 AM EST) Pathologist [facility] CHOLESTEROL, TOTAL 179 <200 mg/dL [facility] HDL CHOLESTEROL 43(L) > [place] = 50 mg/dL [facility] TRIGLYCERIDES 211(H) <150 mg/dL [facility] Comment: If a non-fasting specimen was collected, consider repeat triglyceride testing on a fasting specimen if clinically indicated. Lina et al. J. of Clin. Lipidol. 2015;9:129-169. LDL-CHOLESTEROL 103(H) 99 mg/dL (calc) [facility] Comment: Reference range: <100 Desirable range <100 mg/dL for primary prevention; ?? <70 mg/dL for patients with CHD or diabetic patients with > or = 2 CHD risk factors. LDL-C is now calculated using the Venus calculation, which is a validated novel method providing better accuracy than the Friedewald equation in the estimation of LDL-C. Conner MAXWELL et al. SERAFIN. 2013;310(19): 5920-6951 (http://education.Lodgeo/faq/OOY490) CHOL/HDLC RATIO 4.2 <5.0 (calc) [facility] NON-HDL CHOLESTEROL 136(H) <130 mg/dL (calc) [facility] Comment: For patients with diabetes plus 1 major ASCVD risk factor, treating to a non-HDL-C goal of <100 mg/dL (LDL-C of <70 mg/dL) is considered a therapeutic option. Blood Blood / Unknown 08/10/2021 9 :22 AM EST 08/10/2021 9:22 AM EST Paula Feng CHARGE ENTRY-C LAB - BLOOD DRAW Final Resul t [facility] [address] [address], [employer] [address] [address] from Last 3 Months or Most Recently Relevant to Health Maintenance Insurance [employer] Care Teams Stars Specialist Relationship Specialty Start Date End Date Jeni Ramires PA-C [address] [place] [address] PCP - General Internal Medicine 04/03/23
[2024-08-09 08:33] LABS: MANUAL DIFF FLAG NO
[2024-08-09 08:52] LABS: Basophils Absolute Auto 0.1 X10*3/uL (0.0-0.2); Basophils Percent Auto 0.9 % (0-2); Eosinophils Absolute Auto 0.1 X10*3/uL (0.0-0.4); Eosinophils Percent Auto 2.2 % (0-4); Hematocrit 42.5 % (37.0-47.0); Imm Gran Abs Auto 0.01 X10*3/uL (0.00-0.03); Imm Gran Pct Auto 0.2 % (0.0-0.4); Lymphocytes Absolute Auto 1.9 X10*3/uL (1.2-4.9); Lymphocytes Percent Auto 34.3 % (20-40); Mean Corpuscular HGB Conc 32.9 g/dl (31.0-35.0); Mean Corpuscular Hemoglobin 30.4 pg (27.0-33.0); Mean Corpuscular Volume 92.2 fL (80.0-98.0); Mean Platelet Volume 10.3 fL (9.4-12.3); Monocytes Absolute Auto 0.6 X10*3/uL (0.1-1.2); Monocytes Percent Auto 10.1 % (2-11); Neutrophils Absolute Auto 2.9 x10*3/uL (2.0-8.3); Neutrophils Percent Auto 52.3 % (45-73); Platelet Count 261 X10*3/uL (160-400); Red Blood Count 4.61 X10*6/uL (4.20-5.50); Red Cell Distribution Width 14.4 % (11.0-16.0); White Blood Count 5.6 X10*3/uL (4.8-10.8)
[2024-08-09 09:00] LABS: Appearance Urine Cloudy; Color Urine Dark Yellow; Glucose Urine UA Negative (Negative); Leukocyte Esterase Urine Negative (Negative); Nitrite Urine Negative (Negative); PH 5.5 (5.0-9.0); Urine Blood Negative (Negative); Urine Ketones Negative (Negative); Urine Protein Trace mg/dL (Neg-Trace)
[2024-08-09 09:06] LABS: Bacteria Urine Trace (None Seen); Hyaline Casts Urine 0-2 /LPF (0-2); RBC Urine 0-2 /HPF (0-2); WBC Urine 0-5 /HPF (0-5)
[2024-08-09 09:38] LABS: Erythrocyte Sedimentation Rate 10 MM/HR (0-20)
[2024-08-09 09:44] LABS: Alanine Aminotransferase 26 U/L (0-31); Aspartate Amino Transferase 35 U/L (5-31); C Reactive Protein < 0.10 mg/dL (< or = 0.50); Estimated Glomerular Filt Rate > 60
[2024-08-09 10:00] LABS: Protein/Creatinine Ratio, Ur 0.08 (<0.2); Total Protein Urine Random 16 mg/dL (<12)
[2024-08-10 17:48] LABS: Anti DNA DS Antibody <1 IU/mL
[2024-08-10 23:12] LABS: Complement C3 130 mg/dL (83-193)
== END 2024-08-09 08:20 | disposition home or self-care (01) ==
LOC: HO.LAB 08:19
PROVIDERS: PCP Physician Assistant; Visit Provider Internal Medicine Rheumatology
DX: M06.9 Rheumatoid arthritis, unspecified (principal); M32.9 Systemic lupus erythematosus, unspecified; Z79.899 Other long term (current) drug therapy
CPT/HCPCS: 36415; 81001; 82565; 82570; 84156; 84450; 84460; 85025; 85652; 86140; 86160; 86225

== ENCOUNTER 2024-09-09 09:21 | Outpatient (REF) | payer MEDICAID, SELFPAY ==
--- NOTE | ~2024-09-09 | XR_ITS ---
EXAMINATION: XR LUMBOSACRAL SPINE CLINICAL INFORMATION: M54.16 - Radiculopathy, lumbar region COMPARISON: None available. TECHNIQUE: Three views of the lumbosacral spine. FINDINGS: There is a mild right convex scoliosis, apex at L3. Partial sacralization of L5, with pseudoarticulation of the right transverse process with the sacrum. Normal lordosis. No acute fracture, compression deformity, or suspicious bone lesion. No subluxations. Mild multilevel disc space narrowing, with moderate to severe narrowing at L4-5 and L5-S1. Normal facet alignment. No pars defects. Degenerative facet changes present most notable L4-S1. XR/XR lumbar spine 2-3V IMPRESSION: 1. No acute bony abnormalities. 2. Mild right convex scoliosis, and multilevel moderate spondylosis most significant at L4-S1. 3. Partial sacralization of the L5 vertebral body. Electronically signed by: Elgin Kohler MD 09/09/2024 09:54 AM EDT
--- OUTSIDE RECORDS SUMMARY | 2024-09-09 10:15 | XMS_ITS | Clinical Summary ---
Author Organization [facility] Address [address] [place] [address] Care Team Providers Care Spindle Carver Name Role Phone Jeni Ramires PA-C Primary [...] take off when bathing and toileting. Ref [id number], lot [id number] 1 Each 07/18/19 23 Active folic acid [...] Noted Date Diagnosed Date Systemic lupus erythematosus ([facility]) 4 Overview (11/21/2023): Tree Farmer note: Positive MEMBER SERVICE REPRESENTATIVE antibody associated with MCTD positiver DICK and [...] daily Chronic polyarthritis 10/05/2021 RA (rheumatoid arthritis) ([facility]) Overview (08/29/2022): Seeing arthritis Rx center. Last seen 08/26/22. On methotrexate 12.5mg once weekly. + folic acid. F/u in 6 months, lab monitoring in 1 month Immunizations Immunization Administration Dates Next Due Flu, Preservative Free [...] 07/18/2022 1:11 PM EST Plan of Treatment Upcoming Encounters Date Type Department Care Team (Late st Contact Info) Description 10/29/2024 10:40 AM EDT Office Visit [address] [phone] Jeni Ramires PA-C [address] [place] [address] Health Maintenance Due Date Last Done Comments Anxiety Screening 1974 HPV Screening 1974 Pap + HPV 1974 Cervical Cancer Screening 08/03/1995 Pap Smear 08/03/1995 CT Colonography 08/03/2019 FIT/gFOBT 08/03/2019 Fecal DNA 08/03/2019 Flexible Sigmoidoscopy 08/03/2019 [id number] (3 - Pfizer ris k series) 07/19/2021 06/21/2021, 06/21/2021, 02/02/2021 Imm-Pneumococcal (2 of 2 - PPSV23) 01/13/2023 11/18/2022 Annual Preventive Care Visit 11/19/2023 11/18/2022, 07/26/2021 Imm-Influenza (#1) 2024 05/21/2023, [...] Date/Time Associated Diagnosis Comments LAB SCANNED DOCUMENT 08/09/2024 3:00 AM EDT LAB SCANNED DOCUMENT 08/09/2024 3:00 AM EDT IMAGING SCANNED DOCUMENT 07/30/2024 3:00 AM EST [...] Health Maintenance Results * LAB SCANNED DOCUMENT (08/09/2024 3:00 AM EDT) Only the most recent of2 resultswithin the time period is included. 08/09/2024 3:00 AM EDT Jeni Ramires PA-C SCAN LAB Final Result * IMAGING SCANNED DOCUMENT (07/30/2024 3:00 AM EST) Only the most recent of4 resultswithin the time period is included. 07/30/2024 3:00 AM EST Jeni FORD-Derek SCAN IMAGING Final Result * REFERRAL FOR COLONOSCOPY (02/26/2024 3:00 AM EDT) 02/26/2024 3:00 AM EDT Jeni FORD-C REFERRAL Edited Resul t - Final * REFERRAL FOR MAMMOGRAM (12/16/2023 3:00 AM EDT) 12/16/2023 3:00 AM EDT Jeni FORD-C IMG RFL MAMMO Edited Resul t - Final * HGA1C W/EAG (08/07/2023 9:29 AM EST) HEMOGLOBIN A1C 5.3 <5.7 % of total Hgb [facility] Comment: For the purpose of screening for the presence of diabetes: <5.7% ? Consistent with the absence of diabetes 5.7-6.4% ?Consistent with increased risk for diabetes ?(prediabetes) > or =6.5% ??Consistent with diabetes This assay result is consistent with a decreased risk of diabetes. Currently, no consensus exists regarding use of hemoglobin A1c for diagnosis of diabetes in children. According to [place] Diabetes Association (ADA) guidelines, hemoglobin A1c <7.0% represents optimal control in non- diabetic patients. Different metrics may apply to specific patient populations. Standards of Medical Care in Diabetes(ADA). ?? EAG (MG/DL) 105 mg/dL [facility] EAG (MMOL/L) 5.8 mmol/L [facility] Blood Blood / Unknown 08/07/2023 9 :29 AM EST 08/07/2023 9:30 AM EST Narrative [facility] - 08/08/2023 7:22 AM EST FASTING:NO Jeni Ramires PA-C LAB - BLOOD DRAW Final Resul t [facility] [address] [place] [address], [facility] [address] [place] [phone] * HEPATITIS C AB W/RFLX HCV RNA, QT, RT PCR (08/10/2021 9:22 AM EST) Pathologist [facility] HEPATITIS C ANTIBODY NON-REACT ALEX NON-REACT ALEX [facility] SIGNAL TO CUT-OFF 0.02 <1.00 [facility] Comment: HCV antibody was non-reactive. There is no laboratory evidence of HCV infection. In most cases, no further action is required. However, if recent HCV exposure is suspected, a test for HCV RNA (test code 21277) is suggested. For additional information please refer to http://Grower's Secret.OpenLabel/faq/JCR34g2 (This link is being provided for informational/ educational purposes only.) Blood Blood / Unknown 08/10/2021 9 :22 AM EST 08/10/2021 9:22 AM EST Paula Feng SUPERVISOR [employer]-C LAB - BLOOD DRAW Final Resul t Performing Organization Address [facility] Co de Phone Number [facility] [address] [address], [employer] [address],[facility] [place] [address] * HIV 1/2 AG & AB W/RFLX (4TH GEN) (08/10/2021 9:22 AM EST) HIV AG/AB, 4TH GEN NON-REAC TIVE NON-REAC TIVE [facility] Comment: HIV-1 antigen and HIV-1/HIV-2 [...] ?? For additional information please refer to http://Grower's Secret.OpenLabel/faq/QEZ390 (This link is being provided for informational/ educational purposes only.) The performance of this assay has not been clinically validated in patients less than 2 years old. Blood Blood / Unknown 08/10/2021 9 :22 AM EST 08/10/2021 9:22 AM EST us Paula Galveza SUPERVISOR [employer]-C LAB - BLOOD DRAW Final Resul t Performing Organization Address [facility]/ZIP Co de Phone Number [employer] [facility] [address] [address], [place] [employer] [facility] [address] [address] * (ABNORMAL) LIPIDS W RFLX TO DIRECT LDL (08/10/2021 9:22 AM EST) CHOLESTEROL, TOTAL 179 <200 mg/dL [facility] HDL CHOLESTEROL 43(L) > [place] = 50 mg/dL [facility] TRIGLYCERIDES 211(H) <150 mg/dL [facility] Comment: If a non-fasting specimen was collected, consider repeat triglyceride testing on a fasting specimen if clinically indicated. Lina et al. J. of Clin. Lipidol. 2015;9:129-169. LDL-CHOLESTEROL 103(H) 99 mg/dL (calc) [facility] Comment: Reference range: <100 Desirable range <100 mg/dL for primary prevention; ?? <70 mg/dL for patients with CHD or diabetic patients with > or = 2 CHD risk factors. LDL-C is now calculated using the Conner-Chanell calculation, which is a validated novel method providing better accuracy than the Friedewald equation in the estimation of LDL-C. Conner MAXWELL et al. SERAFIN. 2013;310(19): 3207-4594 (http://education.Evestra/faq/QPA129) CHOL/HDLC RATIO 4.2 <5.0 (calc) [facility] [facility] NON-HDL CHOLESTEROL 136(H) <130 mg/dL (calc) [facility] Comment: For patients with diabetes plus 1 major ASCVD risk factor, treating to a non-HDL-C goal of <100 mg/dL (LDL-C of <70 mg/dL) is considered a therapeutic option. Blood Blood / Unknown 08/10/2021 9 :22 AM EST 08/10/2021 9:22 AM EST Paula Feng SUPERVISOR CORE SHOP-C LAB - BLOOD DRAW Final Resul t [facility] [address] [address], [employer] [facility] [address] [address] from Last 3 Months or Most Recently Relevant to Health Maintenance Insurance [employer] Care Teams Spindle Carver Relationship Specialty Start Date End Date Jeni Ramires PA-C [address] [place] [address] PCP - General Internal Medicine 04/03/23
[2024-09-09 11:15] LABS: Alanine Aminotransferase 19 U/L (0-31); Aspartate Amino Transferase 30 U/L (5-31)
== END 2024-09-09 09:22 | disposition home or self-care (01) ==
LOC: HO.LAB 09:21
PROVIDERS: PCP Physician Assistant; Visit Provider Internal Medicine Rheumatology
DX: Z79.60 Long term (current) use of unspecified immunomodulators and immunosuppressants (principal); M54.16 Radiculopathy, lumbar region
CPT/HCPCS: 36415; 72100; 84450; 84460

== ENCOUNTER → 2024-09-09 09:31 | Outpatient (BNV) | payer MEDICAID, SELFPAY | PROVIDERS: PCP Physician Assistant; Visit Provider Radiology Diagnostic Radiology | DX: M54.16 Radiculopathy, lumbar region (principal) | CPT/HCPCS: 72100 ==

== ENCOUNTER 2024-10-13 10:03 | Outpatient (RCR) | payer MEDICAID, SELFPAY ==
--- NOTE | 2024-10-13 14:05 | MHC.PT.EP ---
[facility] [place] [facility] [place] [facility] [place] [facility] [address] Kristofer Hahn [address] [phone] F: [phone] F: [phone] F: [phone] F: [phone] Physical Therapy Plan of Care Date of Evaluation: 10/13/24 Date of Surgery: Diagnosis: pain, right: Comment: After slipping in the bathroom likely contributing to muscle/ligament strain. I will obtain x-ray of right hip to evaluate for osteoarthritis, which may also contribute to pain. We discussed conservative management. She is avoiding ibuprofen as it has caused GI side effect in the past. Code(s): M25.551 - Pain in right hip Category: Medical Plan: After lab results are back, I will send prescription for meloxicam 15 mg daily PT ordered (3) Shoulder pain, right: Comment: Suspect mild rotator cuff tendinopathy. We discussed conservative management. I will be checking x-ray to evaluate for joint pathology contributing to pain. Code(s): M25.511 - Pain in right shoulder Category: Medical Qualifiers: Chronicity: chronic Qualified Code(s): M25.511 - Pain in right shoulder; G89.29 - Other chronic pain Plan: X-ray right shoulder ordered PT ordered for shoulder strengthening After lab results are back, I will send prescription for NSAID meloxicam 15 mg daily By:Sukhi Ruiz MD07/27/24 1018 Signed By:<Electronically signed by Sukhi Ruiz MD>07/27/24 2207 Assessment: Pt is a RHD 49 y/o female with PMH significant for RA and Lupus , referred to PT for treatment of M25.551 Pain in R hip, M25.511 Pain in R shoulder, S76,.011A Strain of muscle, fascia, and tendon of right hip, initial encounter: Hip pain right Shoulder pain, right Strain of muscle of right hip, Right rotator cuff tendonitis, modalities, myofascial release, TENS unit trial, exercise strengthening program referred to PT 07/27/24. Pt presents to office expressing history of ongoing R shoulder pain and R anterior hip pain for several month. Upon screening signs and sx appear consistent with R RTC tendonitis and hip flexor tightness. Pt reports history of near fall in bathtub a few months back verbalizes fear of falling when in the shower. Discussed benefit in speaking to landlord re: grab bars and adhesive slip treads for tub. Pt also may benefit from a shower chair to aide in confidence/safety for balance. Pt agreeable to participation in PT, will be attending 2x/week x 4 weeks to implement a gentle core/hip stabilization program in addition to postural/RTC strength/stab program. Pt had x-rays R shoulder and R hip (see [facility] system). Pt will be using [employer] transportation system to and from therapy as pt does not drive and uses public transportation. Of note: Pt states she has not yet picked up meloxicam from pharmacy but states she has intentions of picking this up. Pt lacks any form of exercise program currently but has good motivation for self-care/PT and appears to be an excellent candidate. If in agreement please write a script for a shower bench and I can facilitate patient with finding location of a medical supplier that will take her insurance to fill it. Frequency and Duration: The patient will be seen 2x/week x 4 weeks Short Term Goals: 1. Initiate self care management for R shoulder and R hip pain. 2. Demonstrate log roll technique with good technique to ease in mobility. (IR: subjectively has difficulty with getting OOB). 3. Educate re: hand placement for transfers to maximize safety. 4. Reduce shoulder pain by 25%. 5. Reduce hip pain by 25% in regard to ADLS/IADLS. Half-Way Goals: 1. Strengthen hip abd 5/5 L>R. 2. Strengthen hip ext 5/5 L>R. 3. Pt will improve postural awareness in regard to ADLS/IADLS. 4. Pt will demonstrate good carryover of floor recovery training. Treatment Plan: Modalities to reduce pain, spasms and effusion. Manual therapy to restore motion and function. Therapeutic exercise to improve strength and flexibility. Neuromuscular re-education for posture and balance. Therapeutic activities to return to functional activities of daily living. Electronically signed by: Shakila Hendrix, PT, DPT Please sign and return to therapist. Thank you for your referral.
== END 2024-12-21 07:17 | disposition home or self-care (01) ==
LOC: HO.PTS 10:03
PROVIDERS: PCP Physician Assistant; Visit Provider Internal Medicine Rheumatology
DX: M25.551 Pain in right hip (principal); M25.511 Pain in right shoulder; S76.011D Strain of muscle, fascia and tendon of right hip, subsequent encounter; M77.8 Other enthesopathies, not elsewhere classified
CPT/HCPCS: 97110; 97161

== ENCOUNTER 2024-10-26 10:10 | Outpatient (REF) | payer MEDICAID, SELFPAY ==
--- OUTSIDE RECORDS SUMMARY | 2024-10-26 11:36 | XMS_ITS | Clinical Summary ---
Author Organization [facility] Address [address] [place] [address] Care Team Providers Care Fountain Brush Assembler Name Role Phone Jeni Ramires PA-C Primary Care Provider [phone] Source Comments PLEASE NOTE, if this patient [...] take off when bathing and toileting. Ref [id number], lot [id number] 1 Each 07/18/19 23 Active folic acid [...] Noted Date Diagnosed Date Systemic lupus erythematosus ([facility]) 4 Overview (11/21/2023): Rubber Block Layer note: Positive SERVICE DESK MANAGER antibody associated with MCTD positiver DICK and [...] daily Chronic polyarthritis 10/05/2021 RA (rheumatoid arthritis) ([facility]) Overview (08/29/2022): Seeing arthritis Rx [...] Description 10/29/2024 10:40 AM EDT Office Visit [address] [id number] Jeni Ramires PA-C [address] [place] [id number] Health Maintenance Due Date Last Done Comments HPV Screening 1975 Pap + HPV 1974 Cervical Cancer Screening 08/03/1995 Pap Smear 08/03/1995 CT Colonography 08/03/2019 FIT/gFOBT 08/03/2019 Fecal DNA 08/03/2019 Flexible Sigmoidoscopy 08/03/2019 Lhe-FSIEX-92 (3 - Pfizer ris k series) 07/19/2021 06/21/2021, 06/21/2021, 02/02/2021 Imm-Pneumococcal (2 of 2 - PPSV23) 01/13/2023 11/18/2022 Annual Wellness (Adult): Indicated (All Coverage) 11/19/2023 11/18/2022, 07/26/2021 Imm-Influenza (#1) 2024 05/21/2023, 0 07/26/2021, 01/29/2016, Additional history exists Alcohol and Drug Screen 06/02/2024 08/06/19, 11/18/2022, 09/27/2021, Additional history exists Anxiety Screening 08/17/2024 08/18/2023 Depression Monitoring 10/18/2024 07/21/2024 , 05/21/2023, 11/18/2022, [...] Date/Time Associated Diagnosis Comments LAB SCANNED DOCUMENT 09/09/2024 3:00 AM EDT IMAGING SCANNED DOCUMENT 09/09/2024 3:00 AM EDT IMAGING SCANNED DOCUMENT 09/09/2024 3:00 AM EDT LAB SCANNED DOCUMENT 08/09/2024 [...] Health Maintenance Results * LAB SCANNED DOCUMENT (09/09/2024 3:00 AM EDT) Only the most recent of3 resultswithin the time period is included. 09/09/2024 3:00 AM EDT [employer] PA-C SCAN LAB Final Result * IMAGING SCANNED DOCUMENT (09/09/2024 3:00 AM EDT) Only the most recent of6 resultswithin the time period is included. 09/09/2024 3:00 AM EDT [employer] PA-C SCAN IMAGING Final Result * REFERRAL FOR COLONOSCOPY (02/26/2024 3:00 AM EDT) 02/26/2024 3:00 AM EDT [employer] PA-C REFERRAL Edited Resul t - Final * REFERRAL FOR MAMMOGRAM SCREENING (12/16/2023 3:00 AM EDT) 12/16/2023 3:00 AM EDT us Jeni Ramires PA-C IMG RFL MAMMO Edited Resul t - Final * HGA1C W/EAG (08/07/2023 9:29 AM EST) HEMOGLOBIN A1C 5.3 <5.7 % of total Hgb [facility] Comment: For the purpose of screening for the presence of diabetes: <5.7% ? Consistent with the absence of diabetes 5.7-6.4% ?Consistent with increased risk for diabetes ?(prediabetes) > or =6.5% ??Consistent with diabetes This assay result is consistent with a decreased risk of diabetes. Currently, no consensus exists regarding use of hemoglobin A1c for diagnosis of diabetes in children. According to [place] Diabetes Association (ADA) guidelines, hemoglobin A1c <7.0% represents optimal control in non- diabetic patients. Different metrics may apply to specific patient populations. Standards of Medical Care in Diabetes(ADA). ?? EAG (MG/DL) 105 mg/dL [facility] EAG (MMOL/L) 5.8 mmol/L [facility] Blood Blood / Unknown 08/07/2023 9 :29 AM EST 08/07/2023 9:30 AM EST Narrative [facility] - 08/08/2023 7:22 AM EST FASTING:NO us Jeni Ramires PA-C LAB - BLOOD DRAW Final Resul t [facility] [address] [place] [address], [facility] [address] [place] [id number] * HEPATITIS C AB W/RFLX HCV RNA, QT, RT PCR (08/10/2021 9:22 AM EST) HEPATITIS C ANTIBODY NON-REACT ALEX NON-REACT ALEX [facility] SIGNAL TO CUT-OFF 0.02 <1.00 [facility] Comment: HCV antibody was non-reactive. There is no laboratory evidence of HCV infection. In most cases, no further action is required. However, if recent HCV exposure is suspected, a test for HCV RNA (test code 60339) is suggested. For additional information please refer to http://ODK Media.Favbuy/faq/KJO93v4 (This link is being provided for informational/ educational purposes only.) Blood Blood / Unknown 08/10/2021 9 :22 AM EST 08/10/2021 9:22 AM EST Paula Feng DRAFTSPERSON-C LAB - BLOOD DRAW Final Resul t [facility] [address] [address], [facility] [address] [address] * HIV 1/2 AG & AB W/RFLX (4TH GEN) (08/10/2021 9:22 AM EST) HIV AG/AB, 4TH GEN NON-REAC TIVE NON-REAC TIVE [facility] Comment: HIV-1 antigen and HIV-1/HIV-2 antibodies were [...] ?? For additional information please refer to http://[employer].Favbuy/faq/TRP992 (This link is being provided for informational/ educational purposes only.) The performance of this assay has not been clinically validated in patients less than 2 years old. Blood Blood / Unknown 08/10/2021 9 :22 AM EST 08/10/2021 9:22 AM EST Paula Ping DRAFTSPERSON-C LAB - BLOOD DRAW Final Resul t Performing Organization Address City/State/[facility] Co de Phone Number [facility]) [facility] [address] [address], [facility]) [facility] [address] [address] * (ABNORMAL) LIPIDS W RFLX TO DIRECT LDL (08/10/2021 9:22 AM EST) CHOLESTEROL, TOTAL 179 <200 mg/dL [facility]) [facility] HDL CHOLESTEROL 43(L) > OR = 50 mg/dL [facility] TRIGLYCERIDES 211(H) <150 mg/dL [facility] Comment: If a non-fasting specimen was collected, consider repeat triglyceride testing on a fasting specimen if clinically indicated. Lina et al. J. of Clin. Lipidol. 2015;9:129-169. LDL-CHOLESTEROL 103(H) 99 mg/dL (calc) [facility] Comment: Reference range: <100 Desirable range <100 mg/dL for primary prevention; ?? <70 mg/dL for patients with CHD or diabetic patients with > or = 2 CHD risk factors. LDL-C is now calculated using the Conner-Lua calculation, which is a validated novel method providing better accuracy than the Friedewald equation in the estimation of LDL-C. Conner SS et al. SERAFIN. 2013;310(19): 6579-2202 (http://education.Nephosity.BlueLithium/faq/HDK199) CHOL/HDLC RATIO 4.2 <5.0 (calc) [facility] NON-HDL CHOLESTEROL 136(H) <130 mg/dL (calc) [facility] Comment: For patients with diabetes plus 1 major ASCVD risk factor, treating to a non-HDL-C goal of <100 mg/dL (LDL-C of <70 mg/dL) is considered a therapeutic option. Blood Blood / Unknown 08/10/2021 9 :22 AM EST 08/10/2021 9:22 AM EST Paula Ping DRAFTSPERSON-C LAB - BLOOD DRAW Final Resul t [facility] [address] [facility] [address] [place] [address], [facility] [address] [address] from Last 3 Months or Most Recently Relevant to Health Maintenance Insurance [employer] Care Teams Fountain Brush Assembler Relationship Specialty Start Date End Date Jeni Ramires PA-C [address] [place] [address] PCP - General Internal Medicine 04/03/23
[2024-10-26 18:05] LABS: Baso%MD 0.8 %; Eos%MD 1.3 %; Hematocrit 42.4 % (37.0-47.0); Hemoglobin 13.9 g/dl (12.0-16.0); IG%MD 0.3 %; Lymph%MD 24.2 %; Mean Corpuscular HGB Conc 32.8 g/dl (31.0-35.0); Mean Corpuscular Volume 94.6 fL (80.0-98.0); Mean Platelet Volume 10.3 fL (9.4-12.3); Mono%MD 8.1 %; Neut%MD 65.3 %; Platelet Count 340 X10*3/uL (160-400); Red Blood Count 4.48 X10*6/uL (4.20-5.50); Red Cell Distribution Width 13.8 % (11.0-16.0)
[2024-10-26 18:14] LABS: Alanine Aminotransferase 18 U/L (0-31); Aspartate Amino Transferase 38 U/L (5-31); C Reactive Protein < 0.10 mg/dL (< or = 0.50); Estimated Glomerular Filt Rate > 60
[2024-10-26 19:03] LABS: Erythrocyte Sedimentation Rate 15 MM/HR (0-20)
[2024-10-26 21:06] LABS: Atypical Lymph Absolute Manual 0.4 x10*3/uL; Atypical Lymphs Percent Manual 6 % (0-6); Band Neutrophils Percent 6 % (3-5); Basophils Abs Manual 0.1 X10*3/uL (0.0-0.2); Basophils Percent Manual 2 % (0-2); Lymphocytes Percent Manual 17 % (20-40); Microcytosis 1+ (5-14) /OIF; Monocytes Absolute Manual 0.4 X10*3/uL (0.1-1.2); Monocytes Percent Manual 6 % (2-11); Neutrophils Absolute Manual 4.1 X10*3/uL (2.0-8.3); Neutrophils Percent Manual 63 % (45-73); Platelet Estimate NORMAL (NORMAL); Platelet Morphology Comment NORMAL; RBC Morphology NOTED
[2024-10-26 21:07] LABS: Schistocytes 1+ (0-2) /OIF
[2024-10-26 21:08] LABS: Hypersegmented Neutrophils PRESENT
[2024-10-27 21:24] LABS: Anti DNA DS Antibody 1 IU/mL
[2024-10-28 12:44] LABS: Complement C3 147 mg/dL (83-193)
== END 2024-10-26 10:11 | disposition home or self-care (01) ==
LOC: HO.HKASLDS 10:10
PROVIDERS: PCP Physician Assistant; Visit Provider Internal Medicine Rheumatology
DX: M06.9 Rheumatoid arthritis, unspecified (principal); M32.9 Systemic lupus erythematosus, unspecified; Z79.899 Other long term (current) drug therapy; M32.19 Other organ or system involvement in systemic lupus erythematosus; I73.00 Raynaud's syndrome without gangrene; M25.551 Pain in right hip
CPT/HCPCS: 36415; 81335; 82565; 84450; 84460; 85007; 85027; 85652; 86140; 86160; 86225; 99212

== ENCOUNTER 2024-10-26 10:10 | Outpatient (AMB) | payer MEDICAID, SELFPAY ==
--- NOTE | 2024-10-26 10:12 | A.OFFVIS_ITS ---
Vital Signs 10/26/24 10:13 Height 5 ft 2 in Weight 97 lb 0.054 oz BMI 17.7 BP 90/78 Blood Pressure Location Lt brachial Position Sitting Pulse 82 Pulse Source Pulse Oximeter Pulse Oximetry (%) 99 Intake Visit Reasons: 3 Months Intake Note: Patient presents today for follow upon RA and lupus. Accompanied by: Self / Same As Patient Allergies nifedipine Allergy (Mild, Verified 07/27/24 10:18) intolerance sulfasalazine Adverse Reaction (Severe, Verified 10/26/24 10:35) Migraine HPI HPI 3 Months: Details: Sulfasalazine caused headaches with vomiting for 3 days. She took it for 1 week then discontinued it. She continues to have hand pain and stiffness. She feels tired. R hip pain is better controlled with meloxicam. SHe has throbbing pain after walking. Wakes up in the middle of night 3am due to pain. She does exercises learned from PT at home with pain. She wakes up with localized pain in right groin region. 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 She goes up a flight of stairs with difficulty. Physical Exam Vital Signs: Last Vital Signs Pulse 82 10/26/24 10:13 BP 90/78 10/26/24 10:13 Pulse Ox 99 10/26/24 10:13 BMI result Body Mass Index 17.7 Const Other: General: Comfortable CVS: RRR Respiratory: clear to auscultation bilaterally. Good respiratory effort Skin: No lesions seen MSK: Tender to palpate bilateral MCPs and PIPs. She has synovitis in right 2nd, 3rd PIP and left 3rd PIP. She has mild synovitis in right wrist. Normal range of motion of upper extremities. Tender to palpate left groin region with pain with hip external rotation, flexion and extension. Mild right trochanteric bursa tenderness was found. Assessment & Plan Assessment & Plan (1) Systemic lupus erythematosus: Comment: Inflammatory arthritis is uncontrolled. She could not tolerate sulfasalazine due to migraines and vomiting. We discussed next steps with DMARD therapy. Discussed side effects, benefits and drug monitoring on azathioprine. 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 She was started on hydroxychloroquine from 10/2021 to 01/2022, which was discontinued due to development of rash. Methotrexate was started 05/21/2022 to 05/21/2023 but caused headaches and discomfort. Benlysta increased agitation, anxiety and caused suicidal ideation. Leflunomide 10 mg q.d. 04/2024-07/27/2024 DC due to hair loss. Sulfasalazine 08/2024 d/c migraines and vomiting. Code(s): M32.9 - Systemic lupus erythematosus, unspecified Category: Medical Qualifiers: Systemic lupus erythematosus type: unspecified Systemic lupus erythematosus organ involvement: other Qualified Code(s): M32.19 - Other organ or system involvement in systemic lupus erythematosus Plan: Labs for disease and drug monitoring on high-risk medication ordered. After lab results are back, we will send prescription for azathioprine 50 mg daily. She will need labs 1 month after starting azathioprine-CBC, creatinine, AST, ALT. I will titrate up slowly. Consider ELIZABETH inhibitor or Rituximab if she does not tolerate azathioprine Return to clinic in 3 months (2) Hip pain, right: Comment: Uncontrolled pain localized to groin region. Hip x-ray reveals mild osteoarthritis but pain is out of proportion to exam. She has some benefit on meloxicam but she wakes up every morning at 03:00 with uncontrolled pain. PT exacerbates pain. I am concerned about labral tear. She will require MR arthrogram for further evaluation of labral tear Code(s): M25.551 - Pain in right hip Category: Medical Plan: MR right hip arthrogram ordered Change meloxicam to diclofenac 50 mg b.i.d. Hold physical therapy Return to clinic in 3 months (3) Rheumatoid arthritis: Comment: See above Code(s): M06.9 - Rheumatoid arthritis, unspecified Category: Medical Plan: See above (4) Other assisted (current) drug therapy: Code(s): Z79.899 - Other equipment operator intermodal yard (current) drug therapy Category: Medical Plan: See above (5) Raynauds disease: Comment: Controlled with conservative management. Amlodipine and nifedipine caused headaches. Code(s): I73.00 - Raynaud's syndrome without gangrene Category: Medical Plan: Continue conservative management I will consider sildenafil if Raynaud's becomes more active Return to clinic in 3 months or sooner if needed Orders: Orders Anti DNA DS Antibody Today M06.9 - Rheumatoid arthritis, unspecified, M32.19 - Other organ or system involvement in systemic lupus erythematosus, Z79.899 - Other assisted (current) drug therapy Complement C4 Today M06.9 - Rheumatoid arthritis, unspecified, M32.19 - Other organ or system involvement in systemic lupus erythematosus, Z79.899 - Other equipment operator intermodal yard (current) drug therapy Erythrocyte Sedimentation Rate Today M06.9 - Rheumatoid arthritis, unspecified, M32.19 - Other organ or system involvement in systemic lupus erythematosus, Z79.899 - Other equipment operator intermodal yard (current) drug therapy Protein Creatinine Ratio, Ur Today M06.9 - Rheumatoid arthritis, unspecified, M32.19 - Other organ or system involvement in systemic lupus erythematosus, Z79.899 - Other equipment operator intermodal yard (current) drug therapy UA w Microscopic Today M06.9 - Rheumatoid arthritis, unspecified, M32.19 - Other organ or system involvement in systemic lupus erythematosus, Z79.899 - Other equipment operator intermodal yard (current) drug therapy Creatinine Today M06.9 - Rheumatoid arthritis, unspecified, M32.9 - Systemic lupus erythematosus, unspecified, Z79.899 - Other assisted (current) drug therapy TPMT Genetic Test Today M06.9 - Rheumatoid arthritis, unspecified, M32.19 - Other organ or system involvement in systemic lupus erythematosus, Z79.899 - Other equipment operator intermodal yard (current) drug therapy MR hip RT wo/w con Today M06.9 - Rheumatoid arthritis, unspecified, M32.19 - Other organ or system involvement in systemic lupus erythematosus, Z79.899 - Other equipment operator intermodal yard (current) drug therapy Complement C3 Today M06.9 - Rheumatoid arthritis, unspecified, M32.19 - Other organ or system involvement in systemic lupus erythematosus, Z79.899 - Other assisted (current) drug therapy C Reactive Protein Today M06.9 - Rheumatoid arthritis, unspecified, M32.19 - Other organ or system involvement in systemic lupus erythematosus, Z79.899 - Other assisted (current) drug therapy Complete Blood Count Man Dif Today M06.9 - Rheumatoid arthritis, unspecified, M32.9 - Systemic lupus erythematosus, unspecified, Z79.899 - Other equipment operator intermodal yard (current) drug therapy Alanine Aminotransferase Today M06.9 - Rheumatoid arthritis, unspecified, M32.9 - Systemic lupus erythematosus, unspecified, Z79.899 - Other equipment operator intermodal yard (current) drug therapy Aspartate Amino Transferase Today M06.9 - Rheumatoid arthritis, unspecified, M32.9 - Systemic lupus erythematosus, unspecified, Z79.899 - Other assisted (current) drug therapy Medications: New diclofenac potassium Take 1 tablet twice a day 50 mg PO BID 60 tabs 2RF Coding Level of Care Code Est Pt Level 4 (43687) Complex EM visit Add On G2211 Diagnoses Systemic lupus erythematosus with other organ involvement, unspecified SLE type M32.19 Systemic lupus erythematosus type: unspecified Systemic lupus erythematosus organ involvement: other Hip pain, right M25.551 Rheumatoid arthritis M06.9 Other assisted (current) drug therapy Z79.899 Raynauds disease I73.00
[2024-10-26 10:13] VITALS: BP 90/78; PULSE 82; O2SAT 99; BMI 17.7
== END 2024-10-26 14:26 | disposition home or self-care (01) ==
LOC: HO.RHES 10:10
PROVIDERS: PCP Physician Assistant; Visit Provider Internal Medicine Rheumatology
DX: M32.19 Other organ or system involvement in systemic lupus erythematosus (principal); M25.551 Pain in right hip; M06.9 Rheumatoid arthritis, unspecified; Z79.899 Other long term (current) drug therapy; I73.00 Raynaud's syndrome without gangrene
CPT/HCPCS: 99214

== ENCOUNTER 2025-01-10 10:52 | Outpatient (REF) | payer MEDICAID, SELFPAY ==
--- OUTSIDE RECORDS SUMMARY | 2025-01-10 11:36 | XMS_ITS | Clinical Summary ---
Author Organization [address] [facility] Address [address] [place] [address] Phone Care Team Providers Care Composite Assembler Name Role Phone Jeni Ramires Primary Care Provider Family History Medical History Relation Name Comments Colon cancer Father unknown age of diagnosis Pancreatic cancer Mother Breast cancer Sister Relation Name Status Comments Father Mother Sister Alive Social History Tobacco Use Types Packs/Day Years Used Date Smoking Tobacco: Never Smokeless Tobacco: Never Alcohol Use Standard Drinks/Week Comments Never 0 (1 standard drink = 0.6 oz pur e alcohol) Comments Unknown Sex and Gender Information Value Date Recorded Sex Assigned at Not on file Legal Sex Female 8:27 PM EST Gender Identity Not on file Sexual Orientation Not on file Obstetrics History Last Filed Vital Signs Vital Sign Reading Time Taken Comments Blood Pressure 105/70 12/31/2023 9:57 AM EDT Sit ting L Arm Pulse 110 12/31/2023 9:57 AM EDT Temperature - - Respiratory Rate - - Oxygen Saturation - - Inhaled Oxygen Concentration - - Weight 44.5 kg (98 lb) 12/31/2023 9:57 AM EDT Height 157.5 cm (5' 2 ) 12/31/2023 9:57 AM EDT Body Mass Index 17.92 12/31/2023 9:57 AM EDT Plan of Treatment Upcoming Encounters Date Type Department Care Team ([facility] Contact Info) Description 02/23/2025 10:00 AM EDT Office Visit Gastroenterology - [place] [address] [address] Leonarda Trevino NP 175 [facility] [address] [place] [address] Health Maintenance Due Date Last Done Comments Breast Cancer Screening 1974 COVID-19 Vaccine (#1) 08/03/1979 DTaP,Tdap,and Td Vaccines (1 - Tdap) 1993 Hepatitis B Vaccines (1 of 3 - 19+ 3-dose series) 1993 Cervical Cancer Screening: P ap Smear 08/03/1995 Colorectal Cancer Screening: Colonoscopy 06/27/2023 HIV Screening 06/27/2023 Hepatitis C Screening 06/27/2023 Social Influencers of Health Screening 06/27/2023 Depression Screening 06/02/2024 Pneumococcal Vaccine: 50+ Ye ars (1 of 1 - PCV) 2024 Zoster Vaccines (1 of 2) 2024 Influenza Vaccine (#1) 2025 HIB Vaccines Aged Out No longer eligi ble based on patient's age to complete this topic HPV Vaccines Aged Out No longer eligi ble based on patient's age to complete this topic Hepatitis A Vaccines Aged Out No long er eligible based on patient's age to complete this topic IPV Vaccines Aged Out No longer eligi ble based on patient's age to complete this topic MMR Vaccines Aged Out No longer eligi ble based on patient's age to complete this topic Meningococcal ACWY Vaccine Aged Out N o longer eligible based on patient's age to complete this topic Meningococcal B Vaccine Aged Out No l onger eligible based on patient's age to complete this topic RSV Immunization Patients Un amarjit 20 months Aged Out No longer eligible b ased on patient's age to complete this topic Varicella Vaccines Aged Out No longer eligible based on patient's age to complete this topic Insurance [place] - [place] Care Teams Composite Assembler Relationship Specialty Start Date End Date Jeni Ramires PA [facility] [place] [address] PCP - General 05/22/23
--- OUTSIDE RECORDS SUMMARY | 2025-01-10 11:36 | XMS_ITS | Clinical Summary ---
Author Organization [facility] Address [address] [place] [address] Care Team Providers Care Railway Track Worker Name Role Phone Jeni Ramires PA-C Primary [...] take off when bathing and toileting. Ref [id number], lot [id number] 1 Each 07/18/19 23 Active folic acid (FOLVITE) 1 mg tablet Take 1,000 mcg by mouth once daily 09/30/19 23 Active hydrocortisone (ANUSOL-HC) 2.5 % topical creamIndications :Hemorrhoids, unspecified hemorrhoid type Place rectally 2 (two) times daily 30 g 1 11/19/19 23 Active witch Hayder (TUCKS) 50 %Indications:Hem orrhoids, unspecified hemorrhoid type Topical: Apply to anorectal area as needed up to 6 times daily or after each bowel movement 48 Each 1 11/19/19 23 Active SUMAtriptan succinate (IMITREX) 50 mg tabletIndication [...] IRON-INDUCED CONSTIPATION 180 Capsule 12/29/19 24 Active MISCELLANEOUS MEDICAL SUPPLY MISCIndications: Systemic lupus erythematosus, unspecified SLE type, unspecified organ involvement status ([facility]),Rheumat oid arthritis involving multiple sites, unspecified whether rheumatoid factor present ([facility]),Weight loss by miscellaneous route 2 (two) times daily Boost (vanilla & strawberry) to take twice a day. Life time need it. BMI 18.13. 60 Each 1 12/02/19 25 Active Active Problems Problem Noted Date Diagnosed Date Systemic lupus erythematosus (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) Overview (08/29/2022): Seeing arthritis Rx center. Last seen 08/26/22. On methotrexate 12.5mg once weekly. + folic acid. F/u in 6 months, lab monitoring in 1 month Encounters Date Type Department Care Team Description 12/14/2024 Interim Notes [address] [id number] [facility] 12/01/2024 9:00 AM EDT Office Visit [address] [phone] Jeni Ramires PA-C from Last 3 Months Immunizations Immunization Administration Dates Next Due Flu, Preservative Free 05/21/2023,07/26/2021 Hep B,adult,adjuvanted (HEPLISAV) 08/06/2023, INFLUENZA, SEASONAL, INJECTA BLE, PRESERVATIVE FREE 01/29/2016,01/29/2016 Influenza, Whole 05/05/2012 PFIZER COVID VACCINE, PURPLE CAP, 12+ 06/21/2021 ,06/21/2021 PNEUMOCOCCAL CONJUGATE PCV 13 11/18/2022 PNEUMOCOCCAL CONJUGATE PCV 2 0 (Prevnar 20) 12/01/2024 TDAP 07/26/2021 Td (adult) unspecified 05/05/2012 Td (adult), 5 Lf tetanus tox oid (Tenivac), preservative free 08/20/2013 ZOSTER VACCINE, RECOMBINANT (SHINGRIX) 12/01/2024(Deferred: Not Forecasted at Time Visit - Pt completed series 2022),05/21/2023,11/18/2022 Family History Medical History Relation Name Comments [...] Date Smoking Tobacco: Never Smokeless Tobacco: Never Tobacco Cessation:Counseling Given: Yes Alcohol Use Standard Drinks/Week Comments Not Currently [...] Sign Reading Time Taken Comments Blood Pressure 100/60 12/01/2024 9:17 AM EDT Pulse 79 12/01/2024 9:17 AM EDT Temperature 36.9 C (98.5 F) 12/01/2024 9:17 AM EDT Respiratory Rate 16 12/01/2024 9:17 AM EDT Oxygen Saturation 100% 08/06/2023 11:42 AM EST Inhaled Oxygen Concentration - - Weight 45 kg (99 lb 1.6 oz) 12/01/2024 9:17 AM E DT Height 157.5 cm (5' 2 ) 12/01/2024 9:17 AM EDT Body Mass Index 18.13 12/01/2024 9:17 AM EDT Plan of Treatment Health Maintenance Due Date Last Done Comments HPV Screening 1974 Pap + HPV 1974 Pap Smear 08/03/1995 CT Colonography 08/03/2019 FIT/gFOBT 08/03/2019 Fecal DNA 08/03/2019 Flexible Sigmoidoscopy 08/03/2019 Annual Wellness (Adult): Indicated (All Coverage) 11/19/2023 11/18/2022, 07/26/2021 [id number] ( season) 2024 06/21/2021, 06/21/2021 Imm-Zoster, Recombinant (2 of 2) 2024 05/21/2023, 11/18/2022 Anxiety Screening 08/17/2024 08/18/2023 Breast Cancer Screening (Mammogram) 12/15/2024 12/16/2023, 11/26/2022, 08/15/2021 Imm-Influenza (#1) 2025 05/21/2023, 0 07/26/2021, 01/29/2016, Additional history exists Cervical Cancer Screening 03/03/2025 Po stponed from 08/03/1995 (Patient postponement) Depression Monitoring 03/03/2025 12/01/2024 , 07/21/2024, 05/21/2023, Additional history exists Hypertension Screening (#1) 12/01/2025 Tobacco Screening 12/01/2025 12/01/2024, , 07/26/2021 Diabetes Screening 08/06/2026 08/07/2023, 0 08/07/2023, 08/10/2021, Additional history exists Lipid Screening 08/10/2026 08/10/2021 Imm-DTaP/Tdap/Td (2 - Td or Tdap) 07/26/2031 07/26/2021, 08/20/2013, 05/05/2012 Colonoscopy 02/25/2034 02/26/2024 Colorectal Cancer Screening 02/25/2034 HIV Screening Completed 08/10/2021 Hepatitis C Screening Completed 08/10/2021 Imm-Hepatitis B Completed 08/06/2023, 11/18/2022 Alcohol and Drug Screen Completed 12/02/19, 08/06/2023, 11/18/2022, Additional history exists Imm-Pneumococcal 50+ Completed 12/01/2024, 11/19/19 23 Cervical Ablation/Cold-Knife Conization Discontinued Cervical Cryotherapy Discontinued Colposcopy Discontinued Endometrial Biopsy Discontinued Excision/Leep Discontinued HPV Genotyping Discontinued Vaginal Pap Discontinued Vulvoscopy Discontinued Procedures Procedure Name Priority Date/Time Associated Diagnosis Comments OTHER ORDERS SCANNED DOCUMENT 01/04/2025 3:00 AM EDT OTHER ORDERS SCANNED DOCUMENT 12/14/2024 3:00 AM EDT OTHER ORDERS SCANNED DOCUMENT 12/09/2024 3:00 AM EDT OTHER ORDERS SCANNED DOCUMENT 12/09/2024 3:00 AM EDT LAB SCANNED DOCUMENT 10/27/2024 3:00 AM EDT REFERRAL SCANNED DOCUMENT 10/26/2024 3:00 AM EDT LAB SCANNED DOCUMENT 10/26/2024 3:00 AM EDT LAB SCANNED DOCUMENT 10/26/2024 3:00 AM EDT LAB SCANNED DOCUMENT 10/26/2024 3:00 AM EDT LAB SCANNED DOCUMENT 10/26/2024 3:00 AM EDT LAB SCANNED DOCUMENT 10/26/2024 3:00 AM EDT LAB SCANNED DOCUMENT 10/26/2024 3:00 AM EDT LAB SCANNED DOCUMENT 10/26/2024 3:00 AM EDT REFERRAL FOR COLONOSCOPY Routine 02/26/2024 3:00 AM [...] Recently Relevant to Health Maintenance Results * OTHER ORDERS SCANNED DOCUMENT (01/04/2025 3:00 AM EDT) Only the most recent of4 resultswithin the time period is included. 01/04/2025 3:00 AM EDT Jeni Ramires PA-C SCAN OTHER ORDERS Final Resu lt * LAB SCANNED DOCUMENT (10/27/2024 3:00 AM EDT) Only the most recent of8 resultswithin the time period is included. 10/27/2024 3:00 AM EDT Result [facility] Jeni Ramires PA-C SCAN LAB Final Result * REFERRAL SCANNED DOCUMENT (10/26/2024 3:00 AM EDT) 10/26/2024 3:00 AM EDT Result [facility] Sukhi Joseph DDS SCAN REFERRAL Final Result * REFERRAL FOR COLONOSCOPY (02/26/2024 3:00 AM EDT) 02/26/2024 3:00 AM EDT Result [facility] Jeni Ramires PA-C REFERRAL Edited Resul t - Final * REFERRAL FOR MAMMOGRAM SCREENING (12/16/2023 3:00 AM EDT) 12/16/2023 3:00 AM EDT Result [facility] Jeni Raimres PA-C IMG RFL MAMMO Edited Resul t - Final * HGA1C W/EAG (08/07/2023 9:29 AM EST) HEMOGLOBIN A1C 5.3 <5.7 % of total Hgb [facility] Comment: For the purpose of screening for the presence of diabetes: <5.7% Consistent with the absence of diabetes 5.7-6.4% Consistent with increased risk for diabetes (prediabetes) > or =6.5% Consistent with diabetes This assay result is consistent with a decreased risk of diabetes. Currently, no consensus exists regarding use of hemoglobin A1c for diagnosis of diabetes in children. According to [place] Diabetes Association (ADA) guidelines, hemoglobin A1c <7.0% represents optimal control in non- diabetic patients. Different metrics may apply to specific patient populations. Standards of Medical Care in Diabetes(ADA). EAG (MG/DL) 105 mg/dL [employer] EAG (MMOL/L) 5.8 mmol/L [facility] IAGNMedical Referral Source [facility] Blood Blood / Unknown 08/07/2023 9 :29 AM EST 08/07/2023 9:30 AM EST Narrative [facility] - 08/08/2023 7:22 AM EST FASTING:NO Jeni Ramires PA-C LAB - BLOOD DRAW Final Resul t Performing Organization Address [facility]/ZIP Co de Phone Number [employer] [address] [address], [employer] [address] [address] * HEPATITIS C AB W/RFLX HCV RNA, QT, RT PCR (08/10/2021 9:22 AM EST) Pathologist [facility] HEPATITIS C ANTIBODY NON-REACT ALEX NON-REACT ALEX [facility] [employer] [facility] SIGNAL TO CUT-OFF 0.02 <1.00 [employer] [facility] Comment: HCV antibody was non-reactive. There is no laboratory evidence of HCV infection. In most cases, no further action is required. However, if recent HCV exposure is suspected, a test for HCV RNA (test code 18980) is suggested. For additional information please refer to http://education.ReferralCandy/faq/WFB75x4 (This link is being provided for informational/ educational purposes only.) Blood Blood / Unknown 08/10/2021 9 :22 AM EST 08/10/2021 9:22 AM EST Palua Ping ORCHARD WORKER-C LAB - BLOOD DRAW Final Resul t Performing Organization Address City/[facility]/ZIP Co de Phone Number [employer] [address] [address], [employer] [address],[place] [address] * HIV 1/2 AG & AB W/RFLX (4TH GEN) (08/10/2021 9:22 AM EST) HIV AG/AB, 4TH GEN NON-REAC TIVE NON-REAC TIVE [facility] Comment: HIV-1 antigen and HIV-1/HIV-2 antibodies were not detected. There is no laboratory evidence of HIV infection. PLEASE NOTE: This information has been disclosed to you from records whose confidentiality may be protected by state law. If your state requires such protection, then the state law prohibits you from making any further disclosure of the information without the specific written consent of the person to whom it pertains, or as otherwise permitted by law. A general authorization for the release of medical or other information is NOT sufficient for this purpose. For additional information please refer to http://education.ReferralCandy/faq/JCA610 (This link is being provided for informational/ educational purposes only.) The performance of this assay has not been clinically validated in patients less than 2 years old. Blood Blood / Unknown 08/10/2021 9 :22 AM EST 08/10/2021 9:22 AM EST Paula Feng ORCHARD WORKER-C LAB - BLOOD DRAW Final Resul t [facility] [address] [address], [facility] [address] [address] * (ABNORMAL) LIPIDS W RFLX TO DIRECT LDL (08/10/2021 9:22 AM EST) CHOLESTEROL, TOTAL 179 <200 mg/dL [facility] HDL CHOLESTEROL 43(L) > OR = 50 mg/dL [facility] TRIGLYCERIDES 211(H) <150 mg/dL [facility] Comment: If a non-fasting specimen was collected, consider repeat triglyceride testing on a fasting specimen if clinically indicated. Lina et al. J. of Clin. Lipidol. 2015;9:129-169. LDL-CHOLESTEROL 103(H) 99 mg/dL (calc) [facility] Comment: Reference range: <100 Desirable range <100 mg/dL for primary prevention; <70 mg/dL for patients with CHD or diabetic patients with > or = 2 CHD risk factors. LDL-C is now calculated using the Conner-Lua calculation, which is a validated novel method providing better accuracy than the Friedewald equation in the estimation of LDL-C. Conner SS et al. SERAFIN. 2013;310(19): 6709-9565 (http://education.[employer].GlassBox/faq/ORG979) CHOL/HDLC RATIO 4.2 <5.0 (calc) [facility] NON-HDL CHOLESTEROL 136(H) <130 mg/dL (calc) [facility] Comment: For patients with diabetes plus 1 major ASCVD risk factor, treating to a non-HDL-C goal of <100 mg/dL (LDL-C of <70 mg/dL) is considered a therapeutic option. Blood Blood / Unknown 08/10/2021 9 :22 AM EST 08/10/2021 9:22 AM EST Paula Ping ORCHARD WORKER-C LAB - BLOOD DRAW Final Resul t [facility] [address] [address], [facility] [address] [address] from Last 3 Months or Most Recently Relevant to Health Maintenance Insurance [place] MEDICAID Care Teams Railway Track Worker Relationship Specialty Start Date End Date Jeni Ramires PA-C [address] [place] [address] PCP - General Internal Medicine 04/03/23
[2025-01-10 13:36] LABS: Baso%MD 0.9 %; Eos%MD 1.0 %; Hematocrit 39.8 % (37.0-47.0); Hemoglobin 13.3 g/dl (12.0-16.0); IG%MD 0.3 %; Lymph%MD 25.8 %; Mean Corpuscular HGB Conc 33.4 g/dl (31.0-35.0); Mean Corpuscular Hemoglobin 31.0 pg (27.0-33.0); Mean Corpuscular Volume 92.8 fL (80.0-98.0); Mono%MD 7.7 %; NRBC Abs Auto 0.000 X10*3/uL (0.0-0.012); NRBC Pct Auto 0.0 /100WBC (0.0-0.2); Neut%MD 64.3 %; Platelet Count 312 X10*3/uL (160-400); Red Blood Count 4.29 X10*6/uL (4.20-5.50); White Blood Count 7.0 X10*3/uL (4.8-10.8)
[2025-01-10 14:07] LABS: Alanine Aminotransferase 30 U/L (0-31); Aspartate Amino Transferase 37 U/L (5-31); Estimated Glomerular Filt Rate > 60
[2025-01-10 15:37] LABS: Basophils Abs Manual 0.1 X10*3/uL (0.0-0.2); Basophils Percent Manual 1 % (0-2); Eosinophils Absolute Manual 0.1 X10*3/uL (0.0-0.4); Eosinophils Percent Manual 2 % (0-4); Lymphocytes Absolute Manual 1.8 X10*3/uL (1.2-4.9); Lymphocytes Percent Manual 26 % (20-40); Monocytes Absolute Manual 0.2 X10*3/uL (0.1-1.2); Monocytes Percent Manual 3 % (2-11); Neutrophils Percent Manual 68 % (45-73)
[2025-01-10 15:38] LABS: RBC Morphology NORMAL
[2025-01-10 15:39] LABS: Neutrophils Absolute Manual 4.8 X10*3/uL (2.0-8.3)
== END 2025-01-10 10:53 | disposition home or self-care (01) ==
LOC: HO.HKASLDS 10:52
PROVIDERS: Visit Provider Internal Medicine Rheumatology
DX: M32.19 Other organ or system involvement in systemic lupus erythematosus (principal); M06.9 Rheumatoid arthritis, unspecified
CPT/HCPCS: 36415; 82565; 84450; 84460; 85007; 85027; 85652; 86140

== ENCOUNTER 2025-01-27 11:40 | Outpatient (AMB) | payer MEDICAID, SELFPAY ==
--- NOTE | 2025-01-27 12:35 | A.OFFVIS_ITS ---
Vital Signs 01/27/25 12:36 Height 5 ft 9 in Weight 97 lb BMI 14.3 BP 100/60 Blood Pressure Location Rt brachial Position Sitting Pulse 65 Pulse Source Pulse Oximeter Pulse Oximetry (%) 100 Oxygen Delivery Method Room Air Intake Visit Reasons: follow up Intake Note: Patient presents today for follow upon RA and lupus. Accompanied by: Self / Same As Patient Allergies nifedipine Allergy (Mild, Verified 01/27/25 12:35) intolerance sulfasalazine Adverse Reaction (Severe, Verified 01/27/25 12:35) Migraine HPI HPI follow up: Details: Hip pain resolved with diclofenac 50mg BID She is waking up at 3am with migraines. She started topiramate 3 days ago with benefit. Denies fever, pleurisy, dyspnea, oral ulcers, urinary symptoms. Joint pain is better controlled in general. She continues to have hair loss. She wakes up feeling sick with nausea. Physical Exam Vital Signs: Last Vital Signs Pulse 65 01/27/25 12:36 BP 100/60 01/27/25 12:36 Pulse Ox 100 01/27/25 12:36 Oxygen Delivery Method Room Air 01/27/25 12:36 BMI result Body Mass Index 14.3 Const Other: General: Comfortable CVS: RRR Respiratory: clear to auscultation bilaterally. Good respiratory effort Skin: No lesions seen MSK: Tender to palpate left MCPs with chronic synovial thickening of left 2nd MCP, bilateral PIP knees. Tender bilateral wrists. She has left dorsal wrist ganglion cyst present. Normal range of motion of upper extremities and lower extremities Assessment & Plan Assessment & Plan (1) Systemic lupus erythematosus: Comment: Inflammatory arthritis is has improved on azathioprine. She has had serological remission from SLE. I will be reassessing with labs this visit. Diclofenac may be contributing to rebound headaches. History of Rhupus (RA/SLE overlap) with rheumatoid factor 39, DICK 1: 1280, Sm ith and PHYSICAL THERAPY RESIDENT antibody presenting with inflammatory arthritis, rashes and Raynaud's syndrome. She was started on hydroxychloroquine from 10/2021 to 01/2022, which was discontinued due to development of rash. Methotrexate was started 05/21/2022 to 05/21/2023 but caused headaches and discomfort. Benlysta increased agitation, anxiety and caused suicidal ideation. Leflunomide 10 mg q.d. 04/2024-07/27/2024 DC due to hair loss. Sulfasalazine 08/2024 d/c migraines and vomiting. Code(s): M32.9 - Systemic lupus erythematosus, unspecified Category: Medical Qualifiers: Systemic lupus erythematosus type: unspecified Systemic lupus erythematosus organ involvement: other Qualified Code(s): M32.19 - Other organ or system involvement in systemic lupus erythematosus Plan: Increase azathioprine to 75 mg daily Labs for disease monitoring ordered. Labs for drug monitoring on high-risk medication are up-to-date from December 2024 Discontinue diclofenac Follow up with PCP for evaluation and management of migraine and morning nausea Return to clinic in 3 months (2) Hip pain, right: Comment: pain resolved with diclofenac Code(s): M25.551 - Pain in right hip Category: Medical Plan: Monitor clinically (3) Rheumatoid arthritis: Comment: See above Code(s): M06.9 - Rheumatoid arthritis, unspecified Category: Medical Plan: See above (4) Other computer terminal operator (current) drug therapy: Code(s): Z79.899 - Other care home (current) drug therapy Category: Medical Plan: See above (5) Raynauds disease: Comment: Controlled with conservative management. Amlodipine and nifedipine caused headaches. Code(s): I73.00 - Raynaud's syndrome without gangrene Category: Medical Plan: Continue conservative management I will consider sildenafil if Raynaud's becomes more active Return to clinic in 3 months or sooner if needed Orders: Orders Complement C3 Today M32.9 - Systemic lupus erythematosus, unspecified Complement C4 Today M32.9 - Systemic lupus erythematosus, unspecified UA ClnCatch+Micro w/rflx Cult Today M32.9 - Systemic lupus erythematosus, unspecified Anti DNA DS Antibody Today M32.9 - Systemic lupus erythematosus, unspecified Protein Creatinine Ratio, Ur Today M32.9 - Systemic lupus erythematosus, unspecified Medications: New azathioprine Increase dose. Total dose 75mg daily 25 mg (1/2 x 50 mg) PO DAILY 15 tabs 2RF 30 days Discontinued diclofenac potassium Take 1 tablet twice a day Discontinued Reason: Doctor's Order 50 mg PO BID 60 tabs 2RF Coding Level of Care Code Est Pt Level 4 (07977) Complex EM visit Add On G2211 Diagnoses Systemic lupus erythematosus with other organ involvement, unspecified SLE type M32.19 Systemic lupus erythematosus type: unspecified Systemic lupus erythematosus organ involvement: other Hip pain, right M25.551 Rheumatoid arthritis M06.9 Other computer terminal operator (current) drug therapy Z79.899 Raynauds disease I73.00
[2025-01-27 12:36] VITALS: BP 100/60; PULSE 65; O2SAT 100; BMI 14.3
--- OUTSIDE RECORDS SUMMARY | 2025-01-27 12:52 | XMS_ITS | Clinical Summary ---
Author Organization [facility] Address [address] [place] [address] Care Team Providers Care Maid Housekeeper Name Role Phone Jeni Ramires PA-C Primary [...] Vomiting 11/18/2022 Other reaction(s): swollen eye Medications arm braceIndications :Wrist pain, acute, right Wear right wrist brace, size small at night and during day, take off when bathing and toileting. Ref [id number], lot [id number] 1 Each 07/18/19 23 Active folic acid (FOLVITE) 1 mg tablet Take 1,000 mcg by mouth once daily 09/30/19 23 Active melatonin 3 mg tabletIndication s:Insomnia, unspecified [...] unspecified SLE type, unspecified organ involvement status (CMS & HHS-HCC),Rheumat oid arthritis involving multiple sites, unspecified whether rheumatoid factor present (CMS & HHS-HCC),Weight loss by miscellaneous route 2 (two) times daily Boost (vanilla & strawberry) to take twice a day. Life time need it. BMI 18.13. 60 Each 12/02/19 25 Active aspirin-acetamin ophen-caffeine (EXCEDRIN MIGRAINE) 250-250-65 mg per tabletIndication s:Migraine without status migrainosus, not intractable, unspecified migraine type Take 1 Tablet by mouth every 6 (six) hours as needed for pain. 120 Tablet 1 01/19/20 25 Active topiramate (TOPAMAX) 25 mg tabletIndication s:Migraine without status migrainosus, not intractable, unspecified migraine type START 1 tab PO QHS. If no improvement in 2 weeks then increase to 2 tab PO QHS. 90 Tablet 01/19/20 25 Active betamethasone dipropionate (DIPROLENE) 0.05 % ointment APPLY TO ARMS TWICE A DAY NEEDED FOR FOR FLARES 06/07/19 025 Discontin ued(Thera py completed /Not needed) triamcinolone (KENALOG) 0.1 % lotion APPLY TO SCALP TWICE A DAY NEEDED FOR FLARES 06/07/19 025 Discontin ued(Thera py completed /Not needed) hydrocortisone (ANUSOL-HC) 2.5 % topical creamIndications :Hemorrhoids, unspecified hemorrhoid type Place rectally 2 (two) times daily 30 g 11/19/19 025 Discontin ued(Thera py completed /Not needed) witrachel Singletary (TUCKS) 50 %Indications:Hem orrhoids, unspecified hemorrhoid type Topical: Apply to anorectal area as needed up to 6 times daily or after each bowel movement 48 Each 11/19/19 025 Discontin ued(Thera py completed /Not needed) SUMAtriptan succinate (IMITREX) 50 mg tabletIndication s:Acute migraine TAKE 1-2 TABLETS A SINGLE DOSE. IF SYMPTOMS PERSIST OR RETURN, MAY REPEAT DOSE (USUALLY SAME FIRST DOSE) AFTER MORE THAN 2 HOURS. MAXIMUM DOSE: 100 MG/DOSE 200 MG PER 24 HOURS. 30 Tablet 11/28/19 24 025 Discontin ued(Thera py completed /Not needed) Active Problems Problem Noted Date Diagnosed Date Systemic lupus erythematosus ([facility]) Overview (11/21/2023): Associate Director Career Services note: Positive OVERLAY PLASTICIAN antibody associated with MCTD positiver DICK and [...] daily Chronic polyarthritis 10/05/2021 RA (rheumatoid arthritis) ([facility]) Overview (08/29/2022): Seeing arthritis Rx center. Last seen 08/26/22. On methotrexate 12.5mg once weekly. + folic acid. F/u in 6 months, lab monitoring in 1 month Encounters Date Type Department Care Team Description 12/14/2024 Interim Notes [address] [phone] Poppy Jane 12/01/2024 9:00 AM EDT Office Visit [address] [address] Jeni Ramires PA-C from Last 3 Months [...] 12/01/2024 9:17 AM EDT Plan of Treatment Upcoming Encounters Date Type Department Care Team (Late st Contact Info) Description 02/23/2025 11:00 AM EDT Office Visit [facility] [address] [place] [address] Jeni Ramires PA-C [address] [place] [address] Health Maintenance Due Date Last Done Comments HPV Screening 1974 Pap + HPV 1974 Pap Smear 08/03/1995 CT Colonography 08/03/2019 FIT/gFOBT 08/03/2019 Fecal DNA 08/03/2019 Flexible Sigmoidoscopy 08/03/2019 Annual Wellness (Adult): Indicated (All Coverage) 11/19/2023 11/18/2022, 07/26/2021 Ciw-ZJGOR-16 ( season) 2024 06/21/2021, 06/21/2021, 02/02/2021 Imm-Zoster, Recombinant (2 of 2) 2024 05/21/2023, 11/18/2022 Anxiety Screening 08/17/2024 08/18/2023 Breast Cancer Screening (Mammogram) 12/15/2024 12/16/2023, 11/26/2022, 08/15/2021 Imm-Influenza (#1) 2025 05/21/2023, 0 07/26/2021, 01/29/2016, Additional history exists Cervical Cancer Screening 03/03/2025 Po stponed from 08/03/1995 (Patient postponement) Depression Monitoring 03/03/2025 12/01/2024 , 07/21/2024, 05/21/2023, Additional history exists Hypertension Screening (#1) 12/01/2025 Tobacco Screening 01/18/2026 01/18/2025, , 07/26/2021 Diabetes Screening 08/06/2026 08/07/2023, 0 [...] SCANNED DOCUMENT 10/27/2024 3:00 AM EDT REFERRAL FOR COLONOSCOPY Routine [...] period is included. 01/04/2025 3:00 AM EDT Jeniserenity FORD-Derek SCAN OTHER ORDERS Final Resu lt * LAB SCANNED DOCUMENT (10/27/2024 3:00 AM EDT) 10/27/2024 3:00 AM EDT Jeniserenity FORD-Derek SCAN LAB Final Result * REFERRAL FOR COLONOSCOPY (02/26/2024 3:00 AM EDT) 02/26/2024 3:00 AM EDT Jeniserenity FORD-C REFERRAL Edited Resul t - Final * REFERRAL FOR MAMMOGRAM SCREENING (12/16/2023 3:00 AM EDT) 12/16/2023 3:00 AM EDT Ejniserenity FORD-C IMG RFL MAMMO Edited Resul t - Final * HGA1C W/EAG (08/07/2023 9:29 AM EST) HEMOGLOBIN A1C 5.3 <5.7 % of total Hgb [facility] Comment: For the purpose of screening for [...] Care in Diabetes(ADA). EAG (MG/DL) 105 mg/dL [facility] EAG (MMOL/L) 5.8 mmol/L [facility] Blood Blood / Unknown 08/07/2023 9 :29 AM EST 08/07/2023 9:30 AM EST Narrative [facility] - 08/08/2023 7:22 AM EST FASTING:NO Jeni Ramires PA-C LAB - BLOOD DRAW Final Resul t Performing Organization Address [facility] de Phone Number [facility] [address] [address], [facility] [address] [address] * HEPATITIS C AB W/RFLX HCV RNA, QT, RT PCR (08/10/2021 9:22 AM EST) HEPATITIS C ANTIBODY NON-REACT ALEX NON-REACT ALEX [facility] SIGNAL TO CUT-OFF 0.02 <1.00 [facility] Comment: HCV antibody was non-reactive. There is no laboratory evidence of HCV infection. In most cases, no further action is required. However, if recent HCV exposure is suspected, a test for HCV RNA (test code 99315) is suggested. For additional information please refer to http://education.SlidePay/faq/XDH97r1 (This link is being provided for informational/ educational purposes only.) Blood Blood / Unknown 08/10/2021 9 :22 AM EST 08/10/2021 9:22 AM EST Paula SÁNCHEZP-C LAB - BLOOD DRAW Final Resul t Performing Organization Address [facility] de Phone Number [facility] [address] [address], [place] [facility] [address],[facility] [place] [address] * HIV 1/2 AG & AB W/RFLX (4TH GEN) (08/10/2021 9:22 AM EST) HIV AG/AB, 4TH GEN NON-REAC TIVE NON-REAC TIVE [facility] Comment: HIV-1 antigen and HIV-1/HIV-2 antibodies were [...] purpose. For additional information please refer to http://education.SlidePay/faq/BHS779 (This link is being provided for informational/ educational purposes only.) The performance of this assay has not been clinically validated in patients less than 2 years old. Blood Blood / Unknown 08/10/2021 9 :22 AM EST 08/10/2021 9:22 AM EST Paula Ping AUDIO VISUAL TECH-C LAB - BLOOD DRAW Final Resul t [facility] [address] [address], [facility] [address],[facility] [place] [address] * (ABNORMAL) LIPIDS W RFLX TO DIRECT LDL (08/10/2021 9:22 AM EST) Pathologist [facility] CHOLESTEROL, TOTAL 179 <200 mg/dL [facility] HDL CHOLESTEROL 43(L) > OR = 50 mg/dL [facility] TRIGLYCERIDES 211(H) <150 mg/dL [facility] Comment: If a non-fasting specimen was collected, consider repeat triglyceride testing on a fasting specimen if clinically indicated. Lina et al. J. of Clin. Lipidol. 2015;9:129-169. LDL-CHOLESTEROL 103(H) 99 mg/dL (calc) [facility] Comment: Reference range: <100 Desirable range <100 mg/dL for primary prevention; <70 mg/dL for patients with CHD or diabetic patients with > or = 2 CHD risk factors. LDL-C is now calculated using the Venus calculation, which is a validated novel method providing better accuracy than the Friedewald equation in the estimation of LDL-C. Conner SS et al. SERAFIN. 2013;310(19): 5236-9589 (http://education.Met[employer]/faq/STH533) CHOL/HDLC RATIO 4.2 <5.0 (calc) [facility] NON-HDL CHOLESTEROL 136(H) <130 mg/dL (calc) [facility] Comment: For patients with diabetes plus 1 major ASCVD risk factor, treating to a non-HDL-C goal of <100 mg/dL (LDL-C of <70 mg/dL) is considered a therapeutic option. Blood Blood / Unknown 08/10/2021 9 :22 AM EST 08/10/2021 9:22 AM EST Paula Feng AUDIO VISUAL TECH-C LAB - BLOOD DRAW Final Resul t [facility] [address] [address], [facility] [place] [facility] [address] [address] from Last 3 Months or Most Recently Relevant to Health Maintenance Insurance [place] Care Teams Maid Housekeeper Relationship Specialty Start Date End Date Jeni Ramires PA-C [address] [place] [address] PCP - General Internal Medicine 04/03/23
--- OUTSIDE RECORDS SUMMARY | 2025-01-27 12:52 | XMS_ITS | Clinical Summary ---
Author Organization [facility] Address [address] [place] [address] Phone Care Team Providers Care Icebox Worker Name Role Phone Jeni Ramires Primary Care [...] Upcoming Encounters Date Type Department Care Team ([facility] st Contact Info) Description 02/23/2025 10:00 AM EDT Office Visit Gastroenterology - [place] 175 [facility] 175 [facility] [address] [place] [address] Leonarda Trevino NP [address] [place] [phone] Health Maintenance Due Date Last Done Comments [...] to complete this topic Insurance MEDICAID - [place] Care Teams Icebox Worker Relationship Specialty Start Date End Date Jeni Ramires PA [address] [place] [address] PCP - General 05/22/23
== END 2025-01-27 13:29 | disposition home or self-care (01) ==
LOC: HO.RHES 11:40
PROVIDERS: PCP Physician Assistant; Visit Provider Internal Medicine Rheumatology
DX: M32.19 Other organ or system involvement in systemic lupus erythematosus (principal); M25.551 Pain in right hip; M06.9 Rheumatoid arthritis, unspecified; Z79.899 Other long term (current) drug therapy; I73.00 Raynaud's syndrome without gangrene
CPT/HCPCS: 99214

== ENCOUNTER → 2025-01-27 11:40 | Outpatient (BNVA) | payer MEDICAID, SELFPAY | PROVIDERS: PCP Physician Assistant; Visit Provider Internal Medicine Rheumatology | DX: I73.00 Raynaud's syndrome without gangrene (principal); M32.19 Other organ or system involvement in systemic lupus erythematosus; M25.551 Pain in right hip; M06.9 Rheumatoid arthritis, unspecified; Z79.899 Other long term (current) drug therapy | CPT/HCPCS: 99212 ==

== ENCOUNTER 2025-05-17 08:09 | Outpatient (REF) | payer MEDICAID, SELFPAY ==
[2025-05-17 13:47] LABS: Appearance Urine Turbid; Glucose Urine UA Negative (Negative); PH 6.0 (5.0-9.0); Specific Gravity - Urine 1.025 (1.005-1.025); UMIC TRIGGER UACC YES
[2025-05-17 14:06] LABS: UACC Culture Trigger YES
[2025-05-17 14:18] LABS: Protein/Creatinine Ratio, Ur 0.07 (<0.2); Total Protein Urine Random 17 mg/dL (<12)
[2025-05-17 14:40] LABS: MANUAL DIFF FLAG NO
[2025-05-17 14:49] LABS: Hematocrit 44.2 % (37.0-47.0); Hemoglobin 14.5 g/dl (12.0-16.0); Imm Gran Abs Auto 0.03 X10*3/uL (0.00-0.03); Imm Gran Pct Auto 0.5 % (0.0-0.4); Lymphocytes Absolute Auto 1.9 X10*3/uL (1.2-4.9); Mean Corpuscular HGB Conc 32.8 g/dl (31.0-35.0); Mean Corpuscular Hemoglobin 30.9 pg (27.0-33.0); Mean Corpuscular Volume 94.2 fL (80.0-98.0); NRBC Abs Auto 0.000 X10*3/uL (0.0-0.012); NRBC Pct Auto 0.0 /100WBC (0.0-0.2); Platelet Count 328 X10*3/uL (160-400); Red Blood Count 4.69 X10*6/uL (4.20-5.50); White Blood Count 5.5 X10*3/uL (4.8-10.8)
[2025-05-17 15:54] LABS: Alanine Aminotransferase 16 U/L (0-31); Aspartate Amino Transferase 30 U/L (5-31); Estimated Glomerular Filt Rate > 60
== END 2025-05-17 08:10 | disposition home or self-care (01) ==
LOC: HO.HKASLDS 08:09
PROVIDERS: PCP Physician Assistant; Visit Provider Internal Medicine Rheumatology
DX: M32.19 Other organ or system involvement in systemic lupus erythematosus (principal); M06.9 Rheumatoid arthritis, unspecified; I73.00 Raynaud's syndrome without gangrene; M25.551 Pain in right hip; Z79.899 Other long term (current) drug therapy; Z79.624 Long term (current) use of inhibitors of nucleotide synthesis
CPT/HCPCS: 36415; 81001; 82565; 82570; 84156; 84450; 84460; 85025; 85652; 86140; 86160; 86225; 87086

== ENCOUNTER 2025-05-17 08:09 | Outpatient (AMB) | payer MEDICAID, SELFPAY ==
--- NOTE | 2025-05-17 08:17 | MHC.OFFVIS ---
Vital Signs 05/17/25 08:18 Height 5 ft 2 in Weight 91 lb 4.342 oz BMI 16.7 BP 120/80 Blood Pressure Location Rt brachial Position Sitting Pulse 68 Pulse Source Pulse Oximeter Pulse Oximetry (%) 95 Oxygen Delivery Method Room Air Intake Visit Reasons: Arthritis Intake Note: Patient presents today for follow upon RA and lupus. PAtient needs letter to move castillo to a disability building.Will have labs completed and is out of all arthritis medications. Accompanied by: Self / Same As Patient Allergies nifedipine Allergy (Mild, Verified 05/17/25 08:18) intolerance sulfasalazine Adverse Reaction (Severe, Verified 05/17/25 08:18) Migraine HPI HPI Arthritis: Details: She is experiencing pain in her hands. She is having difficulty opening doors from her building. Recently she had to wait 20 minutes outside until maintenance came to help her. She has lost function in her hands because of swelling. She is having sharp pains in her toes randomly. She is experiencing active Raynaud's phenomenon with frequent episodes daily. She has doubling up on socks and wearing gloves. She has had increased headaches from her tendons that live above her. They are making a lot of noise and playing music from 06/03 05:00. She had to take Tylenol at 1 occasion to help her go to sleep. Her anxiety has increased. She is having difficulty going up and downstairs because of pain in her knees. She is out of diclofenac gel, which was helpful to her in the past. She is losing weight. She does not have an appetite. Denies fevers, dyspnea, pleurisy, oral ulcers, rash, urinary symptoms. Physical Exam Vital Signs: Last Vital Signs Pulse 68 05/17/25 08:18 BP 120/80 05/17/25 08:18 Pulse Ox 95 05/17/25 08:18 Oxygen Delivery Method Room Air 05/17/25 08:18 BMI result Body Mass Index 16.7 Const Other: General: Comfortable CVS: RRR Respiratory: clear to auscultation bilaterally. Good respiratory effort Skin: No lesions seen MSK: Tender to palpate MCPs bilateral, and wrists with synovitis of right 3rd PIP and 2nd PIP. Tender to palpate left knee. Normal range of motion of upper extremities and lower extremities Assessment & Plan Assessment & Plan (1) Systemic lupus erythematosus: Comment: Inflammatory arthritis is uncontrolled on Azathioprine. She has lost 6 lb since last visit. We discussed next steps in treatment with Saphnelo. Discussed side effects, benefits and drug monitoring. 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 She was started on hydroxychloroquine from 10/2021 to 01/2022, which was discontinued due to development of rash. Methotrexate was started 05/21/2022 to 05/21/2023 but caused headaches and discomfort. Benlysta increased agitation, anxiety and caused suicidal ideation. Leflunomide 10 mg q.d. 04/2024-07/27/2024 DC due to hair loss. Sulfasalazine 08/2024 d/c migraines and vomiting. Code(s): M32.9 - Systemic lupus erythematosus, unspecified Category: Medical Qualifiers: Systemic lupus erythematosus type: unspecified Systemic lupus erythematosus organ involvement: other Qualified Code(s): M32.19 - Other organ or system involvement in systemic lupus erythematosus Plan: Continue azathioprine to 75 mg daily Labs for disease and drug monitoring ordered Use diclofenac gel 1% every 4-6 hours pRN joint pain with monitoring of LFTs. Mild elevation of AST. Follow up with PCP for evaluation and management of migraine and morning nausea Saphnelo PA Letter written for patient to support disability apartment Return to clinic in 3 months (2) Hip pain, right: Comment: pain resolved with diclofenac Code(s): M25.551 - Pain in right hip Category: Medical Plan: Monitor clinically (3) Rheumatoid arthritis: Comment: See above Code(s): M06.9 - Rheumatoid arthritis, unspecified Category: Medical Plan: See above (4) Other termite renewal inspector (current) drug therapy: Code(s): Z79.899 - Other skilled nursing (current) drug therapy Category: Medical Plan: See above (5) Raynauds disease: Comment: Uncontrolled with conservative management. Amlodipine and nifedipine caused headaches. Code(s): I73.00 - Raynaud's syndrome without gangrene Category: Medical Plan: Continue conservative management Start sildenafil 20mg BID. Will start PA process. Return to clinic in 3 months or sooner if needed Orders: Orders Complete Blood Count Auto Diff Today M32.9 - Systemic lupus erythematosus, unspecified Alanine Aminotransferase Today M32.9 - Systemic lupus erythematosus, unspecified Creatinine Today M32.9 - Systemic lupus erythematosus, unspecified C Reactive Protein Today M32.9 - Systemic lupus erythematosus, unspecified Erythrocyte Sedimentation Rate Today M32.9 - Systemic lupus erythematosus, unspecified Protein Creatinine Ratio, Ur Today M32.9 - Systemic lupus erythematosus, unspecified Complement C3 Today M32.9 - Systemic lupus erythematosus, unspecified Aspartate Amino Transferase Today M32.9 - Systemic lupus erythematosus, unspecified Complement C4 Today M32.9 - Systemic lupus erythematosus, unspecified Anti DNA DS Antibody Today M32.9 - Systemic lupus erythematosus, unspecified UA ClnCatch+Micro w/rflx Cult Today M32.9 - Systemic lupus erythematosus, unspecified Referrals Infusion Center Notification M32.19 - Other organ or system involvement in systemic lupus erythematosus Medications: New sildenafil (pulm.hypertension) 20 mg PO BID 180 tabs 4RF 90 days diclofenac sodium 1% apply to affected area every 4-6 hours PRN pain 4 grams topical QID 100 grams 5RF Changed From azathioprine Increase dose. Total dose 75mg daily 25 mg (1/2 x 50 mg) PO DAILY 30 days 15 tabs 2RF To azathioprine Total dose 75mg daily 25 mg (1/2 x 50 mg) PO DAILY 15 tabs 2RF 30 days Refilled azathioprine 50 mg PO DAILY 30 tabs 2RF 30 days Coding Level of Care Code Est Pt Level 4 (66797) Add On Problem Visit Only Diagnoses Systemic lupus erythematosus with other organ involvement, unspecified SLE type M32.19 Systemic lupus erythematosus type: unspecified Systemic lupus erythematosus organ involvement: other Hip pain, right M25.551 Rheumatoid arthritis M06.9 Other termite renewal inspector (current) drug therapy Z79.899 Raynauds disease I73.00
[2025-05-17 08:18] VITALS: BP 120/80; PULSE 68; O2SAT 95; BMI 16.7
--- OUTSIDE RECORDS SUMMARY | 2025-05-17 08:24 | XMS_ITS | Clinical Summary ---
Author Organization 175 [facility] Address [address] [place] [address] Phone Care Team Providers Care Retail Center Receptionist Name Role Phone Jeni Ramires Primary Care [...] on file Sexual Orientation Not on file Last Filed Vital Signs Vital Sign Reading [...] Care Team (Late st Contact Info) Description 01/27/2026 8:20 AM EDT Office Visit Gastroenterology - [address] [facility] [address] [address] Leonarda Trevino NP [address] [address] Health Maintenance Due Date Last Done Comments Breast Cancer Screening 1974 Colorectal Cancer Screening: Colonoscopy 1974 DTaP,Tdap,and Td Vaccines (1 - Tdap) 1993 Hepatitis B Vaccines (1 of 3 - 19+ 3-dose series) 1993 Cervical Cancer Screening: P ap Smear 08/03/1995 HIV Screening 06/27/2023 Hepatitis C Screening 06/27/2023 Social Influencers of Health Screening 06/27/2023 Depression Screening 06/02/2024 Pneumococcal Vaccine: 50+ Ye ars (1 of 1 - PCV) 2024 Zoster Vaccines (1 of 2) 2024 COVID-19 Vaccine (1 - 2024-2 6 season) 2025 Influenza Vaccine (#1) 2025 RSV Immunization Adult Patie nts (1 - 1-dose 75+ series) 2049 HIB Vaccines Aged Out No longer eligi [...] patient's age to complete this topic Insurance Care Teams Retail Center Receptionist Relationship Specialty Start Date End Date Jeni Ramires PA [facility] [place] [address] PCP - General 05/22/23
--- OUTSIDE RECORDS SUMMARY | 2025-05-17 08:24 | XMS_ITS | Clinical Summary ---
Author Organization [facility] Address [address] [facility] 7 [place] [address] Care Team Providers Care On Line Csr Name Role Phone Unavailable Primary Care Provider Unavailabl e Encounters Date Type Department Care Team Description 05/04/2025 Population Health Risk Score [facility] (C3) Department [address] [address] Provider, Population Health Generic from Last 3 Months Social History Tobacco Use Types Packs/Day Years Used Date Smoking Tobacco: Never Assessed Comments Unknown Sex and Gender Information Value Date Recorded Sex Assigned at Not on file Legal Sex Female 2:24 AM EST Gender Identity Not on file Sexual Orientation Not on file Plan of Treatment Health Maintenance Due Date Last Done Comments CT Colonography 1974 Colonoscopy 1974 Colorectal Cancer Screening 1974 Depression Screening 1974 FIT DNA/Cologuard 1974 FIT 1974 FOBT 1974 SDOH Screening 1974 Sigmoidoscopy 1974 Disability Screening 1974 Alcohol/Substance Use Screening 1986 Tobacco Screening 1986 Family Planning (PISQ) 1989 Hepatitis C Screening 1992 Pap Smear 08/03/1995 Cervical Cancer Screening 2004 HPV/Cotest 2004 Mammogram 2014 COVID-19 Vaccine ( season) 2025 06/21/2021 DTaP/Tdap/Td Vaccines (2 - Td or Tdap) 07/26/2031 07/26/2021, 08/20/2013, 05/05/2012 RSV Patients and Patients Aged 60 years or older (1 - 1-dose 75+ series) 2049 HIV Screening Completed 08/10/2021 Hepatitis B Vaccines Completed 08/06/2023, 11/19/19 23 Pneumococcal Vaccine: 50+ Years Completed 12/01/2024, 11/18/2022 Influenza Vaccine Completed 05/13/2025, , 07/26/2021, Additional history exists Zoster Vaccines Completed 05/13/2025, 05/03, 11/18/2022 HIB Vaccines Aged Out No longer eligi [...] patient's age to complete this topic Meningococcal Vaccine Aged Out No shilpa jered eligible based on patient's age to complete this topic RSV under 20 months Aged Out No longe r eligible based on patient's age to complete this topic Rotavirus Vaccines Aged Out No longer eligible based on patient's age to complete this topic
== END 2025-05-17 09:00 | disposition home or self-care (01) ==
LOC: HO.RHES 08:09
PROVIDERS: PCP Physician Assistant; Visit Provider Internal Medicine Rheumatology
DX: M32.19 Other organ or system involvement in systemic lupus erythematosus (principal); M25.551 Pain in right hip; M06.9 Rheumatoid arthritis, unspecified; Z79.899 Other long term (current) drug therapy; I73.00 Raynaud's syndrome without gangrene
CPT/HCPCS: 99214